=== PATIENT | female | born 1940 | race Caucasian/White ===

== ENCOUNTER 2021-04-23 10:34 | Emergency (ER) | payer MEDICARE, SELFPAY ==
[2021-04-23] VITALS (8 sets, daily range): BP systolic 123–134; BP diastolic 62–85; PULSE 66–78; RESP 18–28; TEMP 36.7–36.9; O2SAT 96–98
--- NOTE | ~2021-04-23 | CT_ITS ---
EXAMINATION: CTA chest PE protocol DATE: 04/23/2021 16:08 INDICATION: Chest pain. TECHNIQUE: Computed tomography angiography (CTA) of the chest was performed with 100 mL Omnipaque-350 intravenous contrast timed to evaluate the pulmonary arteries. Coronal maximum intensity projection 3D-reconstructions were created by the technologist. Automated exposure control and iterative reconst ruction technique were employed. The dose-length product was 380.19 mGy-cm. COMPARISON: CT abdomen 02/14/2017 FINDINGS: The lungs demonstrate mild atelectasis. Again seen are 5 mm and 3 mm nodules in right lower lobe, likely benign. There is a 3 mm nodule in left upper lobe, likely benign. No pleural effusion. There is a chronic 3.1 cm nodule in left thyroid lobe, likely benign. The heart size is normal. No pe ricardial effusion. There is no pulmonary embolus. There is a moderate-sized sliding hiatal hernia. C alcifications in the spleen are consistent with old granulomatous disease. There is severe cervical, thoracic, and lumbar spondylosis. IMPRESSION: 1. No pulmonary embolus. 2. Moderate-sized sliding hiatal hernia. Reviewed, dictated and finalized at location A.
--- NOTE | ~2021-04-23 | XR_ITS ---
XR chest 2V DATE: 04/23/2021 11:32 INDICATION: Chest tightness, dizziness, shortness of breath. History of asthma and smoking. TECHNIQUE: PA and lateral views COMPARISON: 04/22/2019 PA and lateral chest FINDINGS: Heart size is within normal range. No hilar or mediastinal enlargement. Mild bilateral hyperinflation of the lungs. No pulmonary infiltrate or consolidation, pleural effusio n or pulmonary vascular congestion or pneumothorax is detected. Diffuse osteopenia. Resection of the lateral aspect of the left clavicle. Status post cholecystectomy. IMPRESSION: No active cardiopulmonary disease or significant change since 04/22/2019 Reviewed, dictated and finalized at location A. IMPRESSION: No active cardiopulmonary disease or significant change since 019
--- NOTE | 2021-04-23 11:03 | ECG_ITS ---
Measurements Intervals [place] Rate: 69 P: 28 [place]: 157 QRS: 246 QRSD: 85 T: 34 QT: 393 QTc: 422 Interpretive Statements SINUS RHYTHM POOR R WAVE PROGRESSION, ANTERIOR LEADS CONSIDER INFERIOR INFARCT, AGE INDETERMINATE BASELINE ARTIFACT- V3, V5-V6 ABNORMAL ECG Electronically Signed On 04-25-2021 9:12:07 CDT by Edil Oakes D.O.
[2021-04-23 11:30] LABS: Basophils Absolute Auto 0.2 K/mm3 (0.0-0.1); Basophils Percent Auto 1.5 % (0.2-1.2); Eosinophils Absolute Auto 0.2 K/mm3 (0-0.3); Eosinophils Percent Auto 1.9 % (0-4.4); Hematocrit 43.5 % (37.0-47.0); Hemoglobin 13.6 g/dL (12.0-15.0); Immature Granulocyte Absolute 0.05 K/mm3 (0.00-0.031); Immature Granulocyte Percent A 0.5 % (0-0.5); Lymphocytes Absolute Auto 1.74 K/mm3 (0.9-3.2); Lymphocytes Percent Auto 17.5 % (18.3-44.2); Mean Corpuscular HGB Conc 31.3 g/dl (32-36); Mean Corpuscular Hemoglobin 28.5 pg (26-34); Mean Corpuscular Volume 91.2 fl (80-100); Mean Platelet Volume 10.2 fl (7.4-10.4); Monocytes Absolute Auto 0.8 K/mm3 (0.1-0.6); Monocytes Percent Auto 7.8 % (2.6-8.5); Neutrophils Percent Auto 70.8 % (45.5-73.1); Platelet Count Result 363 k/mm3 (150-375); Red Blood Count 4.77 M/mm3 (4.2-5.4); Red Cell Distribution Width 13.1 % (11.5-14.5); White Blood Count 9.9 K/mm3 (4.5-10.0)
[2021-04-23 11:41] LABS: Anion Gap 7 mmol/L (8-16); Blood Urea Nitrogen 18 mg/dL (7-17); Calcium 9.7 mg/dL (8.4-10.2); Carbon Dioxide 28 mmol/L (22-30); Chloride 97 mmol/L (98-107); Estimated CRCL calculation 49 ml/min; Estimated Glomerular Filt Rate > 60; Glucose 111 mg/dL (65-110); Potassium 3.9 mmol/L (3.4-5.0); Sodium 132 mmol/L (137-145)
[2021-04-23 11:45] LABS: INR 0.8; Prothrombin Time 11.3 Seconds (11.1-14.7)
[2021-04-23 11:56] LABS: Troponin I < 0.012 ng/mL (0.000-0.034)
--- NOTE | 2021-04-23 13:26 | ED.SOB ---
HPI - SOB/Dyspnea General Chief Complaint: Shortness of Breath/Dyspnea Stated Complaint: Sent by Dr Rodriguez Time Seen by Provider: 04/23/21 11:47 History of Present Illness HPI Narrative: Patient is an 80-year-old female who presents ER with shortness of breath. This morning around 7 AM patient became suddenly short of breath could not breathe an hour for several seconds. She used her rescue inhaler which improved her symptoms. Denies fevers chills sweats. Has had some tightness similar to her previous asthma issues. No lower extremity swelling or cramping. No long distance travel. Called her PCP who recommended she come to the ER because there is nothing he could do for her. Related Data Home Medications Medication Instructions Recorded Confirmed aspirin 81 mg tablet,delayed 81 mg PO DAILY 09/21/19 02/09/20 release calcium carbonate 600 mg (1,500 1 tablet PO BID 09/21/19 02/09/20 mg)-vitamin D3 200 unit tablet latanoprost 0.005 % eye drops 1 drop EACH EYE QPM 09/21/19 02/09/20 mometasone 50 mcg/actuation nasal 2 spray NASAL DAILY 09/21/19 02/09/20 spray Allergies Allergy/AdvReac Type Severity Reaction Status Date / Time MARK Inhibitors Allergy Unknown Cough Verified 04/23/21 11:54 adhesive Allergy Unknown Rash Verified 04/23/21 11:54 atorvastatin Allergy Unknown Muscle Pain Verified 04/23/21 11:54 latex Allergy Unknown Rash Verified 04/23/21 11:54 Penicillins Allergy Unknown Rash Verified 04/23/21 11:54 Wtlzygw-Ayl-Rjm Reductase Allergy Unknown Muscle Pain Verified 04/23/21 11:54 Inhibitor Review of Systems Review of Systems: All systems reviewed & are unremarkable except as noted in HPI and below Constitutional: Constitutional: Denies chills, Denies fever(s) and Denies weakness ENT: Denies nasal congestion and Denies sore throat Cardiovascular: Cardiovascular: Reports chest pain, Denies rapid heart rate and Denies radiating jaw, neck or arm pain Respiratory: Respiratory: Denies chest congestion, Denies cough, Reports dyspnea and Denies wheezing Gastrointestinal: Gastrointestinal: Denies abdominal pain, Denies nausea and Denies vomiting Musculoskeletal: Musculoskeletal: Denies arthralgias and Denies muscle cramps [facility] Past Medical History Medical History (Updated 04/23/21 @ 16:40 by Robin Simon MD) Asthma with exacerbation COPD with asthma Esophageal reflux Essential (primary) hypertension Mixed hyperlipidemia SVT (supraventricular tachycardia) Family History Family History Mother Family history of chronic obstructive pulmonary disease, Onset Age: 83 Sibling Family history of heart disease in male family member before age 55 Acute myocardial infarction Father Acute myocardial infarction Family history of coronary artery disease, Onset Age: 51 Grandparent Family history of cardiovascular disease, Onset Age: 89 Cerebrovascular accident Other Family history of allergic disorder Hypertension Social History Social History Smoking status: Former smoker Second hand tobacco smoke exposure: No Alcohol intake: current Gender identity (if verbalized by the patient): Female Exam Narrative: GENERAL: Well-appearing, well-nourished, and in no acute distress. HEAD: Normocephalic, atraumatic. EYES: PERRL and EOMI. CHEST: Clear to auscultation. No respiratory distress. HEART: Regular rate and rhythm. Normal peripheral pulses. ABDOMEN: Soft, nontender, nondistended. EXTREMITIES: Normal range of motion. No edema. SKIN: Warm, dry, no rash. NEURO: Alert and oriented x3. PSYCH: Normal mood and affect. Course Course Emergency Course: No PE. Feels better with nebulizer treatment. Discharge with steroids. Vital Signs Vital signs: Vital Signs Temperature 98.1 F 04/23/21 11:03 Pulse Rate 72 04/23/21 11:03 Res
[2021-04-23] MEDS: ALBUTEROL SULFATE NEB 2.5 MG/0.5 ML INH 5 MG INHALATION (13:57)
[2021-04-23] MEDS: IPRATROPIUM BR 0.02% INH SOLN 0.5 MG/2.5 ML VIAL INHALATION (13:58)
[2021-04-23 15:03] LABS: Troponin I < 0.012 ng/mL (0.000-0.034)
[2021-04-23 15:05] LABS: D Dimer 0.55 ug/mL (<0.48)
== END 2021-04-23 17:10 | disposition home or self-care (01) ==
PROVIDERS: Emergency Provider Emergency Medicine; PCP Internal Medicine
DX: J44.1 Chronic obstructive pulmonary disease with (acute) exacerbation (principal); K21.9 Gastro-esophageal reflux disease without esophagitis; E78.2 Mixed hyperlipidemia; I10 Essential (primary) hypertension; Z79.82 Long term (current) use of aspirin; Z87.891 Personal history of nicotine dependence; K44.9 Diaphragmatic hernia without obstruction or gangrene; R94.31 Abnormal electrocardiogram [ECG] [EKG]
CPT/HCPCS: 36415; 71046; 71275; 80048; 84484; 85025; 85380; 85610; 85730; 93005; 94640; 99284; Q9967

== ENCOUNTER 2021-05-10 10:08 | Outpatient (CLI) | payer MEDICARE, SELFPAY ==
--- NOTE | ~2021-05-10 | MM_ITS ---
EXAMINATION: MM screening [facility] BI w mariia HISTORY: Screening mammogram TECHNIQUE: Craniocaudal and mediolateral oblique 3-D tomosynthesis images were obtained and synthetic 2-D images were generated. CAD analysis was submitted and interpreted. COMPARISON: 12/22/2018, 12/09/2018, 10/03/2017, 02/14/2017 BREAST PARENCHYMAL COMPOSITION: There are scattered areas of fibroglandular density. FINDINGS: RIGHT BREAST: Small stable masses are present in the outer right breast. There appears to be a new 3 mm mass in the middle third of the lower inner breast 6 cm from the nipple best appreciated on cranio caudal tomosynthesis image /70. LEFT BREAST: There is no evidence of suspicious mass, calcification, or architectural distortion to s uggest malignancy. There has been no significant interval change. IMPRESSION: 1. Possible new right breast mass. 2. Additional mammographic views and possible breast ultrasound are recommended. BI-RADS Category 0: Incomplete: Needs additional imaging evaluation. Reviewed, dictated and finalized at location A. IMPRESSION: 1. Possible new right breast mass. 2. Additional mammographic views and possible breast ultrasound are recommended . BI-RADS Category 0: Incomplete: Needs additional imaging evaluation.
== END 2021-05-10 10:09 | disposition home or self-care (01) ==
LOC: ANHIMG 10:15
PROVIDERS: PCP Internal Medicine; Visit Provider Internal Medicine
DX: Z12.31 Encounter for screening mammogram for malignant neoplasm of breast (principal); R92.8 Other abnormal and inconclusive findings on diagnostic imaging of breast
CPT/HCPCS: 77063; 77067

== ENCOUNTER 2021-06-05 11:00 | Outpatient (CLI) | payer MEDICARE, SELFPAY ==
--- NOTE | ~2021-06-05 | MMUS_ITS ---
EXAMINATION: MM diagnostic reece RT w mariia, US breast RT limited HISTORY: Possible right breast mass TECHNIQUE: Additional 3-D tomosynthesis images of the right breast were performed and synthetic 2-D i mages were generated. CAD analysis was submitted and interpreted. High resolution limited right breas t ultrasound was performed. COMPARISON: 05/10/2021, 12/22/2018, 12/09/2018, 10/13/2017, 02/14/2017 BREAST PARENCHYMAL COMPOSITION: There are scattered areas of fibroglandular density. FINDINGS: MAMMOGRAPHIC FINDINGS: There is a 4 mm oval, obscured, equal density mass in the posterior third outer breast at the 9:00 lo cation 6 cm from the nipple. ULTRASOUND: There is a 4 mm x 3 mm oval, circumscribed, parallel, hypoechoic mass at the 9:00 location 5 cm from the nipple with no posterior features or internal vascularity. IMPRESSION: 1. Probably benign right breast mass. 2. Recommend 6 month follow-up right diagnostic mammogram and ultrasound. BI-RADS category 3, probably benign findings. Reviewed, dictated and finalized at location A. IMPRESSION: 1. Probably benign right breast mass. 2. Recommend 6 month follow-up right diagnostic mammogram and ultrasound. BI-RADS category 3, probably benign findings.
== END 2021-06-05 11:01 | disposition home or self-care (01) ==
LOC: ANHIMG 11:02
PROVIDERS: PCP Internal Medicine; Visit Provider Internal Medicine
DX: R92.8 Other abnormal and inconclusive findings on diagnostic imaging of breast (principal)
CPT/HCPCS: 76642; 77061; 77065; G0279

== ENCOUNTER 2021-07-31 14:50 | Emergency (ER) | payer MEDICARE, SELFPAY ==
[2021-07-31] VITALS (17 sets, daily range): BP systolic 116–141; BP diastolic 58–68; PULSE 65–84; RESP 13–26; TEMP 36.2–36.6; O2SAT 96–98
--- NOTE | ~2021-07-31 | XR_ITS ---
EXAMINATION: XR chest 2V DATE: 07/31/2021 15:22 INDICATION: Shortness of breath. TECHNIQUE: Frontal and lateral views of the chest were obtained. COMPARISON: Chest 2 views 04/23/2021, chest CT 04/23/2021 FINDINGS: There is mild atelectasis in the lower lung zones. No pleural effusion or pneumothorax. The heart size is normal. There are prominent paracardial fat pads. Surgical clips in the right upper qu adrant are likely from cholecystectomy. IMPRESSION: 1. Mild atelectasis in the lower lung zones. Reviewed, dictated and finalized at location A. [employer]
--- NOTE | 2021-07-31 14:57 | ECG_ITS ---
Measurements Intervals [place] Rate: 68 P: 54 [place]: 138 QRS: 256 QRSD: 85 T: 40 QT: 399 QTc: 427 Interpretive Statements SINUS RHYTHM INCOMPLETE RIGHT BUNDLE BRANCH BLOCK DELAYED PRECORDIAL R/S TRANSITION BORDERLINE T WAVE ABNORMALITY- ANTERIOR LEADS BASELINE ARTIFACT- I, II, III, AVR, AVL, AVF, V4-V6 BORDERLINE ECG Electronically Signed On 07-31-2021 15:17:45 [employer] by Edil Oakes D.O.
[2021-07-31 15:53] LABS: Basophils Absolute Auto 0.1 K/mm3 (0.0-0.1); Basophils Percent Auto 1.6 % (0.2-1.2); Eosinophils Absolute Auto 0.3 K/mm3 (0-0.3); Eosinophils Percent Auto 3.4 % (0-4.4); Hematocrit 41.3 % (37.0-47.0); Hemoglobin 13.2 g/dL (12.0-15.0); Immature Granulocyte Absolute 0.02 K/mm3 (0.00-0.031); Immature Granulocyte Percent A 0.2 % (0-0.5); Lymphocytes Absolute Auto 1.79 K/mm3 (0.9-3.2); Lymphocytes Percent Auto 21.7 % (18.3-44.2); Mean Corpuscular Hemoglobin 29.1 pg (26-34); Mean Platelet Volume 10.2 fl (7.4-10.4); Monocytes Absolute Auto 0.7 K/mm3 (0.1-0.6); Monocytes Percent Auto 8.8 % (2.6-8.5); Neutrophils Absolute Auto 5.3 K/mm3 (1.3-6.7); Neutrophils Percent Auto 64.3 % (45.5-73.1); Platelet Count Result 391 k/mm3 (150-375); Red Blood Count 4.54 M/mm3 (4.2-5.4); White Blood Count 8.3 K/mm3 (4.5-10.0)
[2021-07-31 16:11] LABS: INR 0.9; Prothrombin Time 11.9 Seconds (11.1-14.7)
[2021-07-31 16:12] LABS: Partial Thromboplastin Time 25.9 SECONDS (22.3-36.8)
[2021-07-31 16:20] LABS: Anion Gap 9 mmol/L (8-16); Blood Urea Nitrogen 23 mg/dL (7-17); Calcium 9.7 mg/dL (8.4-10.2); Carbon Dioxide 27 mmol/L (22-30); Chloride 98 mmol/L (98-107); Estimated Glomerular Filt Rate > 60; Glucose 112 mg/dL (65-110); Potassium 3.6 mmol/L (3.4-5.0); Sodium 134 mmol/L (137-145)
[2021-07-31 16:29] LABS: Troponin I < 0.012 ng/mL (0.000-0.034)
--- NOTE | 2021-07-31 18:00 | PC.NURSE ---
pt ambulatory around nurses station with pulse ox dropping to 91%. pts pulse ox increased quickly.
--- NOTE | 2021-07-31 19:01 | ED.SOB ---
HPI - SOB/Dyspnea General Chief Complaint: Shortness of Breath/Dyspnea Stated Complaint: sob Time Seen by Provider: 07/31/21 18:15 Source: patient Mode of arrival: ambulatory Limitations: no limitations History of Present Illness HPI Narrative: 80-year-old female Has a history of asthma and/or COPD She reports that she has been feeling little bit more short of breath for about 6 months and felt as though her Advair was no longer working for her Continue to use an albuterol rescue inhaler She saw her primary several days ago and was switched to trilogy Again today she had to use albuterol nebulizer twice and the second time she felt like it was less beneficial She also had complained of a couple episodes of brief, sharp, precordial pains today which worried her She does not have a fever or cough, no nausea or diaphoresis, no exacerbation of her symptoms with activity movement or change in position Related Data Home Medications Medication Instructions Recorded Confirmed aspirin 81 mg tablet,delayed 81 mg PO DAILY 09/21/19 05/28/21 release calcium carbonate 600 mg (1,500 1 tablet PO BID 09/21/19 05/28/21 mg)-vitamin D3 200 unit tablet latanoprost 0.005 % eye drops 1 drop EACH EYE QPM 09/21/19 05/28/21 mometasone 50 mcg/actuation nasal 2 spray NASAL DAILY 09/21/19 05/28/21 spray Allergies Allergy/AdvReac Type Severity Reaction Status Date / Time MARK Inhibitors Allergy Unknown Cough Verified 07/31/21 18:37 adhesive Allergy Unknown Rash Verified 07/31/21 18:37 atorvastatin Allergy Unknown Muscle Pain Verified 07/31/21 18:37 latex Allergy Unknown Rash Verified 07/31/21 18:37 Penicillins Allergy Unknown Rash Verified 07/31/21 18:37 Dldivfh-OEN-LbU Reductase Allergy Unknown Muscle Pain Verified 07/31/21 18:37 Inhibitor [Lzukqbs-Uok-Sri Reductase Inhibitor] Review of Systems Review of Systems: All systems reviewed & are unremarkable except as noted in HPI and below Constitutional: Constitutional: Reports no additional constitutional complaints, Denies chills, Denies fever(s) and Denies headache(s) Eyes: Eyes: Reports no additional eye complaints and Denies change in vision ENT: Denies headache(s) and Denies sore throat Cardiovascular: Cardiovascular: Reports chest pain and Denies dyspnea Respiratory: Respiratory: Reports cough and Reports dyspnea Gastrointestinal: Gastrointestinal: Denies abdominal pain, Denies diarrhea and Denies vomiting Genitourinary: Genitourinary: Denies urinary frequency and Denies dysuria Musculoskeletal: Musculoskeletal: Denies deformity, Denies arthralgias, Denies joint swelling and Denies numbness Integumentary/Breasts: Skin/Breast: Denies rash and Denies wounds Neurologic: Denies headache(s), Denies focal weakness and Denies numbness Psychiatric: Psychiatric: Reports no additional psychiatric complaints Endocrine: Endocrine: Reports no additional endocrine complaints Hematologic/Lymphatic: Hematologic/Lymphatic: Reports no additional hematologic/lymphatic complaints Allergic/Immunologic: Allergic/Immunologic: Reports no additional allergic/immunologic complaints [facility] Past Medical History Medical History Asthma with exacerbation COPD with asthma Esophageal reflux Essential (primary) hypertension Mixed hyperlipidemia SVT (supraventricular tachycardia) Family History Family History Mother Family history of chronic obstructive pulmonary disease, Onset Age: 83 Sibling Family history of heart disease in male family member before age 55 Acute myocardial infarction Father Acute myocardial infarction Family history of coronary artery disease, Onset Age: 51 Grandparent Family history of cardiovascular disease, Onset Age: 89 Cerebrovascular accident Other Family history of allergic disorder Hypertension
[2021-07-31 19:03] LABS: Troponin I < 0.012 ng/mL (0.000-0.034)
--- NOTE | 2021-07-31 21:04 | PC.NURSE ---
ERP notifid that BNP was not added on to labs done at 1830 as it was ordered. RN was holding meds for BNP results. When RN noted that BNP had still not resulted RN notified Lab to add on and ERP of the issue. ERP stated to D/C Bumex and the PO potassium at this time. did not need to wait for BNP results for D/C
[2021-07-31 21:14] LABS: NT Pro B Type Natriuretic Pept 89 pg/mL (5-100)
== END 2021-07-31 21:28 | disposition home or self-care (01) ==
PROVIDERS: Emergency Medicine; Emergency Provider Emergency Medicine; PCP Internal Medicine
DX: J44.9 Chronic obstructive pulmonary disease, unspecified (principal); R07.9 Chest pain, unspecified; R60.9 Edema, unspecified; K21.9 Gastro-esophageal reflux disease without esophagitis; I10 Essential (primary) hypertension; E78.2 Mixed hyperlipidemia; I45.10 Unspecified right bundle-branch block; R94.31 Abnormal electrocardiogram [ECG] [EKG]
CPT/HCPCS: 36415; 71046; 80048; 83880; 84484; 85025; 85610; 85730; 93005; 99284

== ENCOUNTER 2021-08-10 12:34 | Outpatient (CLI) | payer MEDICARE, SELFPAY ==
--- NOTE | 2021-08-10 14:41 | P.PCNPFT_ITS ---
PFT Procedure Performed PFT Procedure Performed Spirometry with Pre/Post Bronchodilator Plethysmography (Lung Vol) Diffusing Cap (DLCO) Flow Vol Loop PFT Interpretation This is a pulmonary function test with pre and post-bronchodilator spirometry, plethysmography and diffusing capacity. The test was performed and results interpreted in accordance with the 2019 and 2005 ATS/ERS Task Force guidelines respectively using the Global Lung Function Initiative-2012 reference equations. Patient demonstrated good effort and cooperation. Reproducibility criteria were met. The quality of the pre bronchodilator spirometry maneuver was Grade A and post bronchodilator spirometry maneuver was Grade A. Findings: Spirometry: there is decreased maximal expiratory airflow at all lung volumes with concave expiratory flow tracing. The contour the inspiratory flow tracing is normal. The pre bronchodilator FVC is 1.93 L, 88% predicted. The pre bronchodilator FEV1 is 0.91 L, 55% predicted. The FEV1: FVC ratio is 47%. The post bronchodilator FVC is 2.12 L, representing a 10% increase. The post bronchodilator FEV1 is 0.16 L, representing 150 mL increase which corresponds to a 16% increase. The post bronchodilator FEV1: FVC ratio is 50% Plethysmography: the total lung capacity is 3.82 L, 86% predicted. Functional residual capacity is 2.19 L, 86% predicted. The residual volume is 1.84 L, 84% predicted. Diffusion capacity: The absolute diffusion capacity is 10.9, 61% predicted. The diffusing capacity corrected for alveolar volume is 3.33, 77% predicted. Impression: There is a moderately severe obstructive abnormality without significant improvement after inhaling a single dose of albuterol as the abso lute increase in the post bronchodilator FEV1 is less than 200 mL. the lung volumes are normal. The absolute diffusing capacity is mildly decreased and normalizes when corrected for alveolar volume. There are no prior studies for comparison
== END 2021-08-10 12:35 | disposition home or self-care (01) ==
LOC: ANHPFT 12:39
PROVIDERS: PCP Internal Medicine; Visit Provider Family Medicine
DX: J45.901 Unspecified asthma with (acute) exacerbation (principal); R94.2 Abnormal results of pulmonary function studies
CPT/HCPCS: 94060; 94726; 94729

== ENCOUNTER → 2022-04-18 10:31 | Outpatient (REF) | payer MEDICARE, SELFPAY | LOC: ANHLAB 10:31 | PROVIDERS: PCP Internal Medicine; Visit Provider Nurse Practitioner | DX: C44.01 Basal cell carcinoma of skin of lip (principal); C44.319 Basal cell carcinoma of skin of other parts of face | CPT/HCPCS: 88305 ==

== ENCOUNTER 2022-07-01 07:00 | Outpatient (NON) | payer MEDICARE, SELFPAY | END 2022-07-01 07:01 | disposition home or self-care (01) | PROVIDERS: PCP Family Medicine; Visit Provider Surgery Plastic and Reconstructive Surgery | DX: C44.319 Basal cell carcinoma of skin of other parts of face (principal); C44.01 Basal cell carcinoma of skin of lip | CPT/HCPCS: 88305; 88331 ==

== ENCOUNTER 2022-07-08 07:00 | Outpatient (NON) | payer MEDICARE, SELFPAY | END 2022-07-08 07:01 | disposition home or self-care (01) | PROVIDERS: PCP Family Medicine; Visit Provider Surgery Plastic and Reconstructive Surgery | DX: C44.01 Basal cell carcinoma of skin of lip (principal) | CPT/HCPCS: 88305; 88331 ==

== ENCOUNTER 2022-09-17 07:00 | Outpatient (NON) | payer MEDICARE, SELFPAY | END 2022-09-17 07:01 | disposition home or self-care (01) | PROVIDERS: PCP Family Medicine; Visit Provider Nurse Practitioner | DX: C44.519 Basal cell carcinoma of skin of other part of trunk (principal) | CPT/HCPCS: 88305 ==

== ENCOUNTER 2022-10-10 15:51 | Outpatient (NON) | payer MEDICARE, SELFPAY | END 2022-10-10 15:52 | disposition home or self-care (01) | LOC: ANHLAB 15:55 | PROVIDERS: PCP Family Medicine; Visit Provider Nurse Practitioner | DX: D49.2 Neoplasm of unspecified behavior of bone, soft tissue, and skin (principal); L98.8 Other specified disorders of the skin and subcutaneous tissue | CPT/HCPCS: 88305 ==

== ENCOUNTER 2022-10-21 13:13 | Outpatient (NON) | payer MEDICARE, SELFPAY | END 2022-10-21 13:14 | disposition home or self-care (01) | LOC: ANHLAB 13:13 | PROVIDERS: PCP Family Medicine; Visit Provider Nurse Practitioner | DX: C44.519 Basal cell carcinoma of skin of other part of trunk (principal) | CPT/HCPCS: 88305; 88331 ==

== ENCOUNTER 2022-12-11 00:04 | Emergency (ER) | payer MEDICARE, SELFPAY ==
[2022-12-11] VITALS (23 sets, daily range): BP systolic 112–138; BP diastolic 53–82; PULSE 60–75; RESP 13–29; TEMP 36.7; O2SAT 94–99
--- NOTE | ~2022-12-11 | XR_ITS ---
Clinical Indication: Irregular heartbeat PA and lateral views of the chest: Comparison: 07/31/2021 Findings: The lungs are clear, without evidence of focal consolidation or pleural effusion. Cardiome diastinal silhouette is within normal limits. Bones and soft tissues are unremarkable. Impression: Normal chest. Reviewed, dictated and finalized at location . Impression: Normal chest.
--- NOTE | 2022-12-11 00:11 | ECG_ITS ---
Measurements Intervals [place] Rate: 65 P: 62 [place]: 160 QRS: -81 QRSD: 89 T: 35 QT: 406 QTc: 425 Interpretive Statements SINUS RHYTHM LEFT AXIS DEVIATION DELAYED PRECORDIAL R/S TRANSITION BASELINE ARTIFACT- I, II, III, AVR, AVL, AVF, V1 BORDERLINE ECG COMPARED TO ECG 07/31/2021 15:01:37 NO SIGNIFICANT CHANGES Electronically Signed On 12-11-2022 6:40:06 CDT by Edil Oakes D.O.
[2022-12-11 00:25] LABS: Basophils Absolute Auto 0.1 K/mm3 (0.0-0.1); Eosinophils Absolute Auto 0.1 K/mm3 (0-0.3); Eosinophils Percent Auto 1.3 % (0-4.4); Hematocrit 35.6 % (37.0-47.0); Hemoglobin 11.5 g/dL (12.0-15.0); Immature Granulocyte Absolute 0.02 K/mm3 (0.00-0.031); Immature Granulocyte Percent A 0.2 % (0-0.5); Lymphocytes Absolute Auto 1.87 K/mm3 (0.9-3.2); Lymphocytes Percent Auto 20.3 % (18.3-44.2); Mean Corpuscular HGB Conc 32.3 g/dl (32-36); Mean Corpuscular Hemoglobin 28.7 pg (26-34); Mean Corpuscular Volume 88.8 fl (80-100); Mean Platelet Volume 9.8 fl (7.4-10.4); Monocytes Absolute Auto 0.8 K/mm3 (0.1-0.6); Monocytes Percent Auto 8.6 % (2.6-8.5); Neutrophils Absolute Auto 6.3 K/mm3 (1.3-6.7); Neutrophils Percent Auto 68.6 % (45.5-73.1); Platelet Count Result 347 k/mm3 (150-375); Red Blood Count 4.01 M/mm3 (4.2-5.4); White Blood Count 9.2 K/mm3 (4.5-10.0)
[2022-12-11 00:35] LABS: Prothrombin Time 12.9 Seconds (11.1-14.7)
[2022-12-11 00:36] LABS: Alanine Aminotransferase 18 U/L (6-35); Albumin Level 3.8 g/dL (3.5-5.1); Alkaline Phosphatase 113 U/L (38-126); Anion Gap 4 mmol/L (8-16); Aspartate Amino Transferase 19 U/L (14-36); Bilirubin,Total 0.6 mg/dL (0.2-1.3); Blood Urea Nitrogen 17 mg/dL (7-17); Calcium 8.3 mg/dL (8.4-10.2); Carbon Dioxide 25 mmol/L (22-30); Chloride 108 mmol/L (98-107); Estimated CRCL calculation 54 ml/min; Estimated Glomerular Filt Rate > 60; Glucose 94 mg/dL (65-110); Lipase 38 U/L (23-300); Partial Thromboplastin Time 26.7 SECONDS (22.3-36.8); Potassium 3.1 mmol/L (3.4-5.0); Sodium 137 mmol/L (137-145)
[2022-12-11 00:47] LABS: Troponin I < 0.012 ng/mL (0.000-0.034)
[2022-12-11] MEDS: SODIUM CHLORIDE 0.9% IV 1,000 ML 999 ML IV CONT (01:29)
[2022-12-11 01:35] LABS: Magnesium 1.9 mg/dL (1.6-2.3)
[2022-12-11] MEDS: POTASSIUM CHLORIDE 20 MEQ PACKET (FOR LIQUID) 40 MEQ PO (02:36)
[2022-12-11] MEDS: MAGNESIUM SULF 1 GM/D5W 100 ML 1 GM/100 ML BAG IVPB (02:36)
--- NOTE | 2022-12-11 02:42 | ED.GENADULT ---
HPI - General Adult General Chief complaint: Dizziness Stated complaint: dizzy Time Seen by Provider: 12/11/22 01:02 History of Present Illness HPI narrative: Patient is a 81-year-old female who presents the emergency department with chief complaint of palpitations and dizziness. The patient reports that she has history of PVCs and reports that she takes Cardizem patient reports that tonight she started noticing that she was having more frequent of the the irregular beats and reports that she felt, lightheaded with this. Patient reports no syncope denies chest pain reports that she has had this happen before and has seen her primary care provider. The patient reports she has seen cardiology and had a Holter monitor a few years ago. Related Data Home Medications Medication Instructions Recorded Confirmed aspirin 81 mg tablet,delayed 81 mg PO DAILY 09/21/19 08/12/22 release (Adult Aspirin Regimen) latanoprost 0.005 % eye drops 1 drop ophthalmic (eye) QPM 09/21/19 08/12/22 Allergies Allergy/AdvReac Type Severity Reaction Status Date / Time MARK Inhibitors Allergy Unknown Cough Verified 08/12/22 10:08 adhesive Allergy Unknown Rash Verified 08/12/22 10:08 atorvastatin Allergy Unknown Muscle Pain Verified 08/12/22 10:08 latex Allergy Unknown Rash Verified 08/12/22 10:08 Penicillins Allergy Unknown Rash Verified 08/12/22 10:08 Bakqrsu-BCC-XnJ Reductase Allergy Unknown Muscle Pain Verified 08/12/22 10:08 Inhibitor [Hdumnrb-Hrb-Ija Reductase Inhibitor] Review of Systems Review of Systems: A 10 system review of systems was completed on the patient and is negative except for what is stated in the HPI. Nursing and ancillary documentation was reviewed. [facility] Past Medical History Medical History Asthma with exacerbation COPD with asthma Esophageal reflux Essential (primary) hypertension Mixed hyperlipidemia SVT (supraventricular tachycardia) Family History Family History Mother Family history of chronic obstructive pulmonary disease, Onset Age: 83 Sibling Family history of heart disease in male family member before age 55 Acute myocardial infarction Father Acute myocardial infarction Family history of coronary artery disease, Onset Age: 51 Grandparent Family history of cardiovascular disease, Onset Age: 89 Cerebrovascular accident Other Family history of allergic disorder Hypertension Social History Social History Social History: Patient states she has never smoke (03/11/22). Smoking status: Never smoker Second hand tobacco smoke exposure: No Alcohol intake: current Gender identity (if verbalized by the patient): Female Exam Narrative: GENERAL: Well-appearing, well-nourished, and in no acute distress. HEAD: Normocephalic, atraumatic. EYES: PERRLA and EOMI. ENT: Nares clear, no rhinorrhea or epistaxis. Mucous membranes moist. NECK: Supple. CHEST: Clear to auscultation. No respiratory distress. HEART: Regular rate and rhythm. No murmur heard. Normal peripheral pulses. ABDOMEN: Soft, nontender, nondistended, normal active bowel sounds. EXTREMITIES: Normal range of motion. No edema. SKIN: Warm, dry, no rash. NEURO: No focal deficits. Alert and oriented x3. PSYCH: Normal mood and affect. Course Vital Signs Vital signs: Vital Signs Temperature 36.7 C 12/11/22 00:03 Pulse Rate 75 12/11/22 00:03 Respiratory Rate 15 12/11/22 00:03 Blood Pressure 130/65 12/11/22 00:03 Pulse Oximetry 99 12/11/22 00:03 Oxygen Delivery Room Air 12/11/22 00:03 Temperature 36.7 C 12/11/22 00:03 Pulse Rate 63 12/11/22 01:46 Respiratory Rate 17 12/11/22 01:46 Blood Pressure 123/53 L 12/11/22 01:46 Pulse Oximetry 94 12/11/22 01:46 Oxygen Del
[2022-12-11 03:57] LABS: Troponin I < 0.012 ng/mL (0.000-0.034)
== END 2022-12-11 04:18 | disposition home or self-care (01) ==
PROVIDERS: Emergency Provider Emergency Medicine; PCP Family Medicine
DX: R00.2 Palpitations (principal); E87.6 Hypokalemia; I49.3 Ventricular premature depolarization; E78.2 Mixed hyperlipidemia; I10 Essential (primary) hypertension; J44.9 Chronic obstructive pulmonary disease, unspecified; Z79.899 Other long term (current) drug therapy
CPT/HCPCS: 36415; 71046; 80053; 83690; 83735; 84484; 85025; 85610; 85730; 93005; 96361; 96365; 99284; A9270; J3475; J7030

== ENCOUNTER 2022-12-18 11:26 | Outpatient (CLI) | payer MEDICARE, SELFPAY ==
[2022-12-18 18:42] LABS: Anion Gap 6 mmol/L (8-16); Blood Urea Nitrogen 22 mg/dL (7-17); Calcium 9.4 mg/dL (8.4-10.2); Carbon Dioxide 28 mmol/L (22-30); Chloride 102 mmol/L (98-107); Estimated Glomerular Filt Rate > 60; Glucose 98 mg/dL (65-110); Potassium 3.9 mmol/L (3.4-5.0); Sodium 136 mmol/L (137-145)
== END 2022-12-18 11:27 | disposition home or self-care (01) ==
LOC: ANHGOSHLAB 11:27
PROVIDERS: PCP Family Medicine; Visit Provider Nurse Practitioner
DX: E87.6 Hypokalemia (principal)
CPT/HCPCS: 36415; 80048

== ENCOUNTER 2023-04-02 09:12 | Outpatient (CLI) | payer MEDICARE, SELFPAY ==
[2023-04-02 16:26] LABS: Alanine Aminotransferase 22 U/L (6-35); Albumin Level 4.1 g/dL (3.5-5.1); Alkaline Phosphatase 110 U/L (38-126); Anion Gap 5 mmol/L (8-16); Aspartate Amino Transferase 45 U/L (14-36); Bilirubin,Total 0.6 mg/dL (0.2-1.3); Blood Urea Nitrogen 18 mg/dL (7-17); Calcium 9.2 mg/dL (8.4-10.2); Carbon Dioxide 30 mmol/L (22-30); Chloride 103 mmol/L (98-107); Cholesterol 244 mg/dL (0-200); Estimated Glomerular Filt Rate > 60; Glucose 102 mg/dL (65-110); HDL Direct 51 mg/dL; Magnesium 2.3 mg/dL (1.6-2.3); Sodium 138 mmol/L (137-145); Triglycerides 137 mg/dL (<150)
[2023-04-02 16:37] LABS: LDL Cholesterol Direct 141 mg/dL
[2023-04-02 18:07] LABS: Thyroid Stimulating Hormone Reflex 0.996 uIU/mL (0.465-4.68)
== END 2023-04-02 09:13 | disposition home or self-care (01) ==
LOC: ANHGOSHLAB 09:14
PROVIDERS: PCP Family Medicine; Visit Provider Family Medicine
DX: E61.2 Magnesium deficiency (principal); Z13.29 Encounter for screening for other suspected endocrine disorder; Z13.228 Encounter for screening for other metabolic disorders; Z13.220 Encounter for screening for lipoid disorders; N60.09 Solitary cyst of unspecified breast
CPT/HCPCS: 36415; 80053; 80061; 83735; 84443

== ENCOUNTER 2023-08-02 21:34 | Emergency (ER) | payer MEDICARE, SELFPAY ==
[2023-08-02 21:36] VITALS: BP 131/77; PULSE 81; RESP 20; TEMP 36.5; O2SAT 98
[2023-08-02] MEDS: HYDROcodone/acetaminophen (*CRX) 5-325 MG TABLET 1 TAB PO (22:21)
[2023-08-02] MEDS: LIDOCAINE HCL 2% JELLY 5 ML TUBE 1 APPLIC TOPICAL (22:52)
--- NOTE | 2023-08-02 23:40 | ED.WOUNDLAC ---
HPI - Wound/Laceration General Chief Complaint: Wound/Laceration Stated Complaint: Skin tear L arm Time Seen by Provider: 08/02/23 21:44 Source: patient Limitations: no limitations History of Present Illness HPI narrative: Patient is an 82-year-old female presents to the emergency department complaining of the left arm injury. Patient states that around 9:20 p.m. today she was going through the door of the home with the daughter and the lesion the dog tugged and brushed her arm up against the door frame causing a tearing of the skin. Patient admits to mild discomfort over the region of the wound. Patient denies any decreased range of motion of her left upper extremity at any joint. Patient was that her tetanus is up-to-date most recently was 6 years ago the patient not tried anything for the pain. Patient states that she was wearing a long sleeve shirt and has no concern for dirty wound contamination. Patient denies any numbness, weakness, any other injuries, denies use of blood thinners. Patient denies head injury. Patient denies being diabetic. Related Data Home Medications Medication Instructions Recorded Confirmed aspirin 81 mg tablet,delayed 81 mg PO DAILY 09/21/19 05/29/23 release (Adult Aspirin Regimen) latanoprost 0.005 % eye drops 1 drop ophthalmic (eye) QPM 09/21/19 05/29/23 Allergies Allergy/AdvReac Type Severity Reaction Status Date / Time MARK Inhibitors Allergy Unknown Cough Verified 05/29/23 11:31 adhesive Allergy Unknown Rash Verified 05/29/23 11:31 atorvastatin Allergy Unknown Muscle Pain Verified 05/29/23 11:31 latex Allergy Unknown Rash Verified 05/29/23 11:31 Penicillins Allergy Unknown Rash Verified 05/29/23 11:31 Maesfjq-GYY-FoJ Reductase Allergy Unknown Muscle Pain Verified 05/29/23 11:31 Inhibitor [Igvmeuw-Pdq-Hpg Reductase Inhibitor] Review of Systems Review of Systems: A 10 system review of systems was completed on the patient and is negative except for what is stated in the HPI. Nursing and ancillary documentation was reviewed. [facility] Past Medical History Medical History (Updated 08/02/23 @ 23:52 by Kurt Ojeda DO) Asthma with exacerbation Bronchitis COPD with asthma Esophageal reflux Essential (primary) hypertension Mixed hyperlipidemia SVT (supraventricular tachycardia) Family History Family History Mother Family history of chronic obstructive pulmonary disease, Onset Age: 83 Sibling Family history of heart disease in male family member before age 55 Acute myocardial infarction Father Acute myocardial infarction Family history of coronary artery disease, Onset Age: 51 Grandparent Family history of cardiovascular disease, Onset Age: 89 Cerebrovascular accident Other Family history of allergic disorder Hypertension Social History Social History Smoking status: Never smoker Second hand tobacco smoke exposure: No Alcohol intake: current Lack of Transportation: No Lack of Food: Never True Current Housing: I Have Housing Concerned About Future Housing: No Difficulty Paying Gas/Electric Bills: No Difficulty Paying for Meds: No Currently Unemployed: No Education: Bachelor's Degree Difficulty w/ Childcare or Family Care: No Gender identity (if verbalized by the patient): Female Comments At time of signature, I have reviewed and agree with nursing past medical, surgical, social and family history unless otherwise noted. Please see the nursing chart for further information. There is no relevant family history pertinent to the presenting complaint. Exam Narrative: CONST: No acute distress. Well nourished. HENMT: Head is normocephalic and atraumatic. EYES: No conjunctival icterus, injection, or pallor. PERRL. RESP: Able to speak in full sentences. Normal respiratory effo
[2023-08-03 00:34] VITALS: BP 138/61; PULSE 71; RESP 15; O2SAT 98
== END 2023-08-03 01:07 | disposition home or self-care (01) ==
PROVIDERS: Emergency Provider Student in an Organized Health Care Education/Training Program; PCP Family Medicine
DX: S51.812A Laceration without foreign body of left forearm, initial encounter (principal); Z79.82 Long term (current) use of aspirin; J44.9 Chronic obstructive pulmonary disease, unspecified; K21.9 Gastro-esophageal reflux disease without esophagitis; I10 Essential (primary) hypertension; E78.2 Mixed hyperlipidemia; W22.8XXA Striking against or struck by other objects, initial encounter
CPT/HCPCS: 99283; A9270

== ENCOUNTER 2023-12-09 10:38 | Outpatient (CLI) | payer MEDICARE, SELFPAY ==
--- NOTE | ~2023-12-09 | MMUS_ITS ---
EXAMINATION: MM diagnostic reece BI w mariia, US breast RT limited HISTORY: Probably benign right breast mass reported at 9:00 6 cm from the nipple on June 05 diagnostic right mammogram and limited right breast ultrasound TECHNIQUE: Bilateral full field ML, MLO and CC and right spot ML and CC 3-D tomosynthesis images were performed and synthetic 2-D images were generated. CAD analysis was submitted and interpreted. High resolution targeted right breast ultrasound at 9:00 5 cm from the nipple was performed. COMPARISON: 06/05/2021 diagnostic right mammogram and limited right breast ultrasound 05/10/2021 bilateral screening mammogram BREAST PARENCHYMAL COMPOSITION: There are scattered areas of fibroglandular density. FINDINGS: MAMMOGRAPHIC FINDINGS: Occasional small low-density circumscribed nodular densities measuring 4 mm or smaller are noted on t he right laterally. Scattered bilateral benign calcifications. No suspicious mass, architectural distortion, malignant microcalcifications, skin thickening or retra ction or significant new or developing density of either breast is detected. ULTRASOUND: Targeted ultrasound of right breast at 9:00 5 cm from the nipple reveals a circumscribed 2.6 x 2.4 mm hypoechoic lesion without internal vascularity or posterior shadowing, diminished in size from 3.2 x 4.3 mm dimension on 06/05/2021. IMPRESSION: 1. Benign findings 2. Routine annual mammographic screening is recommended BI-RADS Category 2: Benign finding(s). Reviewed, dictated and finalized at location A. IMPRESSION: 1. Benign findings 2. Routine annual mammographic screening is recommended BI-RADS Category 2: Benign finding(s).
== END 2023-12-09 10:39 | disposition home or self-care (01) ==
PROVIDERS: PCP Family Medicine; Visit Provider Family Medicine
DX: N60.09 Solitary cyst of unspecified breast (principal); R92.8 Other abnormal and inconclusive findings on diagnostic imaging of breast
CPT/HCPCS: 76642; 77062; 77066; G0279

== ENCOUNTER 2024-04-02 10:23 | Outpatient (CLI) | payer MEDICARE, SELFPAY ==
[2024-04-02 19:13] LABS: Alanine Aminotransferase 19 U/L (6-35); Albumin Level 4.3 g/dL (3.5-5.1); Alkaline Phosphatase 124 U/L (38-126); Anion Gap 10 mmol/L (4-12); Aspartate Amino Transferase 25 U/L (14-36); Bilirubin,Total 0.7 mg/dL (0.2-1.3); Blood Urea Nitrogen 24 mg/dL (7-17); Calcium 9.5 mg/dL (8.4-10.2); Carbon Dioxide 28 mmol/L (22-30); Chloride 99 mmol/L (98-107); Cholesterol 245 mg/dL (0-200); Estimated Glomerular Filt Rate > 60; Glucose 99 mg/dL (65-110); HDL Direct 57 mg/dL; Sodium 137 mmol/L (137-145); Triglycerides 96 mg/dL (<150)
[2024-04-02 19:24] LABS: LDL Cholesterol Direct 156 mg/dL
== END 2024-04-02 10:24 | disposition home or self-care (01) ==
LOC: ANHGOSHLAB 10:25
PROVIDERS: PCP Family Medicine; Visit Provider Family Medicine
DX: E78.2 Mixed hyperlipidemia (principal); Z13.228 Encounter for screening for other metabolic disorders
CPT/HCPCS: 36415; 80053; 80061

== ENCOUNTER 2024-06-14 15:46 | Emergency (ER) | payer MEDICARE, SELFPAY ==
--- NOTE | ~2024-06-14 | XR_ITS ---
EXAMINATION: XR chest 2V Exam Date/Time: 06/14/2024 16:05 CDT HISTORY: cough, lung tightness x 3 weeks- COPD/asthma Comparison: 12/11/2022, report only. RESULT: Lines, tubes, and devices: Cholecystectomy clips. Lungs and pleura: Mild emphysematous/senescent change, otherwise clear. Cardiomediastinal silhouette: Stable. Other: No acute osseous or upper abdominal finding. IMPRESSION: No acute cardiopulmonary process. Reviewed, dictated and finalized at location K.
--- NOTE | 2024-06-14 15:53 | ED.SOB ---
HPI - SOB/Dyspnea General Chief Complaint: Upper Respiratory Infection Stated Complaint: Asthma Time Seen by Provider: 06/14/24 16:00 Source: patient Mode of arrival: ambulatory Limitations: no limitations History of Present Illness HPI Narrative: Faith is a an 83-year-old female patient presenting to the clinic today with complaints of asthma exacerbation. She reports over the last 3 weeks she has been increased shortness of breath with a nonproductive cough. She contacted her lorry weigher last week and they put her on a 5 day course of 40 mg of prednisone daily. She reports that the steroid did not really help. She is taking her scheduled inhalers/neb and using her rescue inhaler as needed. She denies any chest pain. She denies any fever or chills. Related Data Home Medications Medication Instructions Recorded Confirmed aspirin 81 mg tablet,delayed 81 mg PO DAILY 09/21/19 06/14/24 release (Adult Aspirin Regimen) latanoprost 0.005 % eye drops 1 drop ophthalmic (eye) QPM 09/21/19 06/14/24 meloxicam 15 mg tablet 15 mg PO DAILY 03/26/24 06/14/24 Allergies Allergy/AdvReac Type Severity Reaction Status Date / Time MARK Inhibitors Allergy Unknown Cough Verified 06/14/24 15:54 adhesive Allergy Unknown Rash Verified 06/14/24 15:54 atorvastatin Allergy Unknown Muscle Pain Verified 06/14/24 15:54 latex Allergy Unknown Rash Verified 06/14/24 15:54 Penicillins Allergy Unknown Rash Verified 06/14/24 15:54 Nrsukuw-WJF-StZ Reductase Allergy Unknown Muscle Pain Verified 06/14/24 15:54 Inhibitor [Lxhpggu-Wqm-Uha Reductase Inhibitor] Review of Systems Review of Systems: Pertinent positives per HPI. Patient denies any fever, chills, rash, headache, visual changes, dizziness, chest pain, palpitations, nausea, vomiting, diarrhea, constipation, abdominal pain, or any urinary issues. [facility] Past Medical History Medical History Asthma with exacerbation Bronchitis COPD with asthma Esophageal reflux Essential (primary) hypertension Mixed hyperlipidemia SVT (supraventricular tachycardia) Family History Family History Mother Family history of chronic obstructive pulmonary disease, Onset Age: 83 Sibling Family history of heart disease in male family member before age 55 Acute myocardial infarction Father Acute myocardial infarction Family history of coronary artery disease, Onset Age: 51 Grandparent Family history of cardiovascular disease, Onset Age: 89 Cerebrovascular accident Other Family history of allergic disorder Hypertension Social History Social History Smoking status: Never smoker Second hand tobacco smoke exposure: No Alcohol intake: current Lack of Transportation: No Lack of Food: Never True Current Housing: I Have Housing Concerned About Future Housing: No Difficulty Paying Gas/Electric Bills: No Difficulty Paying for Meds: No Currently Unemployed: No Education: Bachelor's Degree Difficulty w/ Childcare or Family Care: No Gender identity (if verbalized by the patient): Female Comments At the time of my signature, I reviewed and agree with the nursing past medical, surgical, social, and family history. There is no relevant family history pertinent to the patient complaint. Exam Narrative: General: Well-developed, well nourished, in no apparent distress Head: Normocephalic, atraumatic Eyes: Pupils equally round and reactive to light bilaterally, EOM intact, sclera and conjunctive clear, no discharge, lids normal Ears: TMs intact and clear, ear canals clear, no drainage, grossly hearing normal. Nose: Nares patent, no discharge, no inflammation, no sinus tenderness. Mouth: Oral pharynx without lesions or masses, good dentition, MMM. Neck: Supple, trachea
[2024-06-14 15:55] VITALS: BP 126/55; PULSE 89; RESP 18; TEMP 36.9; O2SAT 97
[2024-06-14 15:56] VITALS: BP 126/55; PULSE 89; RESP 18; TEMP 36.9; O2SAT 97
== END 2024-06-14 16:32 | disposition home or self-care (01) ==
PROVIDERS: Emergency Provider Nurse Practitioner Family
DX: J40 Bronchitis, not specified as acute or chronic (principal); J44.9 Chronic obstructive pulmonary disease, unspecified; I10 Essential (primary) hypertension; E78.2 Mixed hyperlipidemia; K21.9 Gastro-esophageal reflux disease without esophagitis; Z79.82 Long term (current) use of aspirin
CPT/HCPCS: 71046; 99213; G0463

== ENCOUNTER 2024-07-28 12:39 | Outpatient (CLI) | payer MEDICARE, SELFPAY ==
--- NOTE | 2024-07-28 12:52 | ECHO_ITS ---
Patient Info Name: Faith Collins Age: 83 years : 1940 Gender: Female Ht: 59 in Wt: 144 lbs BSA: 1.67 m2 HR: 75 bpm BP: 131 / 71 mmHg Heart Rhythm: Sinus Rhythm Technical Quality: Fair Exam Date: 07/28/2024 12:54 PM Exam Location: Echo Lab Patient Status: Outpatient Admit Date: 07/28/2024 Staff Ordering Physician: Román Lopez APRN Cutting Machine Offbearer: Citlali Boyd RDCS Attending Provider: Román Lopez APRN Referring Physician: John CASTELLANOS; Exam Type: CA echo doppler color flow Study Info Indications R06.09 - Other forms of dyspnea Complete two-dimensional, color flow and Doppler transthoracic echocardiogram is performed. Summary 1. Complete two-dimensional, color flow and Doppler transthoracic echocardiogram is performed. 2. Left ventricular chamber dimension is normal. 3. Left ventricular systolic function is normal, estimated at 60-65%. 4. The left ventricular diastolic function is grade I diastolic dysfunction. 5. E/e' 18 is elevated. 6. Left atrial chamber dimension is mildly enlarged. 7. There is mild aortic valve sclerosis. 8. There is mild aortic valve regurgitation. 9. There is trace mitral valve regurgitation. 10. There is trace tricuspid valve regurgitation. 11. No pulmonary hypertension, estimated pulmonary arterial systolic pressure is 32 mmHg. Left Ventricle E/e' 18 is elevated. Left ventricular chamber dimension is normal. Left ventricular systolic function is normal, estimated at 60-65%. The left ventricular diastolic function is grade I diastolic dysfunction. Right Ventricle Right ventricular systolic function is normal and with normal TAPSE 2.2 cm. Right ventricular chamber dimension is normal. Left Atria Left atrial chamber dimension is mildly enlarged. Right Atria Right atrial chamber dimension is normal. Aortic Valve The aortic valve is trileaflet. There is mild aortic valve sclerosis. There is no aortic valve stenosis. There is mild aortic valve regurgitation. Pulmonic Valve There is no pulmonic regurgitation. Mitral Valve There is no mitral valve stenosis. There is trace mitral valve regurgitation. Tricuspid Valve There is trace tricuspid valve regurgitation. No pulmonary hypertension, estimated pulmonary arterial systolic pressure is 32 mmHg. Pericardium/Pleural There is no pericardial effusion. Inferior Vena Cava Normal inferior vena cava with >50% collapse upon inspiration consistent with normal right atrial pressure, 5 mmHg. Aorta The aortic root size at the sinus of Valsalva is normal. Left Ventricular Outflow Tract Name Value Normal LVOT 2D LVOT Diameter 1.9 cm LVOT Doppler LVOT Peak Gradient 7 mmHg LVOT Mean Gradient 3 mmHg LVOT VTI 24 cm LVOT VTI/AV VTI Ratio 0.7 LVOT Stroke Volume 65 ml LVOT CO 4.3 l/min LVOT CI 2.6 l/min/m2 Pulmonic Valve Name Value Normal RVOT Doppler RVOT Peak Gradient 4 mmHg PV Doppler PV Peak Gradient 5 mmHg Mitral Valve Name Value Normal MV Doppler MV Decel Sweet [place] 642 cm/s2 MV PHT 45 ms MV Area (PHT) 4.9 cm2 4.0-5.0 MV Diastolic Function MV E Peak Velocity 99 cm/s MV A Peak Velocity 123 cm/s MV E/A 0.8 MV Decel Time 154 ms MV Annular TDI MV E/e' (Septal) 19.7 <=8.0 MV E/e' (Lateral) 17.8 <=8.0 MV E/e' (Average) 18.8 Tricuspid Valve Name Value Normal TV Regurgitation Doppler TR Peak Velocity 261 cm/s TR Peak Gradient 27 mmHg Estimated PAP/RSVP RA Pressure 5 mmHg <=5 PA Systolic Pressure 32 mmHg <36 RV Systolic Pressure 32 mmHg <36 Aorta Name Value Normal Ascending Aorta Ao Root Diameter (MM) 2.4 cm Ao Root Diam Index (MM) 1.5 cm/m2 Aortic Valve Name Value Normal AV Doppler AV Peak Velocity 181 cm/s AV Peak Gradient 13 mmHg AV Mean Gradient 6 mmHg AV VTI 34 cm AV Area (Cont Eq VTI) 1.9 cm2 >=3.0 AV Area (Cont Eq Nick) 1.9 cm2 AV Regurgitation 2D LVOT Area 2.7 cm2 AV Regurgitation Doppler AR Decel Time 1,782 ms AR Decel Sweet Grass 191 cm/s2 AR PHT 517 ms Ventricles Name Value Normal LV Dimensions 2D/MM IVS Diastolic Thickness (2D) 0.8 cm 0.6-1.0 LVID Diastole (2D) 4.7 cm 3.8-5.2 LVIW Diastolic Thickness (2D) 0.8 cm 0.6-0.9 LVID Systole (2D) 3.1 cm 2.2-3.5 LVOT Diameter 1.9 cm LV Mass (2D Cubed) 115.02 g 67.00-162.00 LV Mass Index (2D Cubed) 69 g/m2 43-95 Relative Wall Thickness (2D) 0.32 LV Fractional Shortening/Ejection Fraction 2D/MM LV Fractional Shortening (2D) 34 % 27-45 LV EF (2D Teicholz) 63 % 54-74 LV Diastolic Volume (4C MOD) 56 ml LV EF (4C MOD) 66 % LV Diastolic Volume (2C MOD) 54 ml LV EF (2C MOD) 63 % LV Diastolic Volume (BP MOD) 56 ml 46-106 LV Diastolic Volume Index (BP MOD) 34 ml/m2 29-61 LV Systolic Volume (BP MOD) 20 ml 14-42 LV Systolic Volume Index (BP MOD) 12 ml/m2 8-24 LV EF (BP MOD) 65 % 54-74 LV Diastolic Length (4C) 6.7 cm LV Systolic Length (4C) 5.6 cm LV Stroke Volume (4C MOD) 37 ml Atria Name Value Normal LA Dimensions LA Dimension (MM) 4.0 cm 2.7-3.8 LA Volume (4C A-L) 60 ml LA Volume (BP A-L) 58 ml RA Dimensions RA Area (4C) 13.6 cm2 <=18.0 Report Signatures
[2024-07-28 13:02] LABS: Basophils Absolute Auto 0.1 K/mm3 (0.0-0.1); Basophils Percent Auto 1.4 % (0.2-1.2); Eosinophils Absolute Auto 0.1 K/mm3 (0-0.3); Hematocrit 40.3 % (37.0-47.0); Hemoglobin 12.9 g/dL (12.0-15.0); Immature Granulocyte Absolute 0.04 K/mm3 (0.00-0.031); Immature Granulocyte Percent A 0.4 % (0-0.5); Lymphocytes Absolute Auto 1.75 K/mm3 (0.9-3.2); Lymphocytes Percent Auto 18.6 % (18.3-44.2); Mean Corpuscular Hemoglobin 28.8 pg (26-34); Mean Platelet Volume 9.8 fl (7.4-10.4); Monocytes Absolute Auto 0.8 K/mm3 (0.1-0.6); Neutrophils Absolute Auto 6.6 K/mm3 (1.3-6.7); Neutrophils Percent Auto 70.6 % (45.5-73.1); Platelet Count Result 426 k/mm3 (150-375); Red Blood Count 4.48 M/mm3 (4.2-5.4); Red Cell Distribution Width 15.1 % (11.5-14.5); White Blood Count 9.4 K/mm3 (4.5-10.0)
== END 2024-07-28 12:40 | disposition home or self-care (01) ==
LOC: ANHCARD 12:40
PROVIDERS: PCP Internal Medicine; Visit Provider Nurse Practitioner Family
DX: R06.09 Other forms of dyspnea (principal); I35.1 Nonrheumatic aortic (valve) insufficiency
CPT/HCPCS: 36415; 85025; 93306

== ENCOUNTER 2024-08-18 10:59 | Outpatient (CLI) | payer MEDICARE, SELFPAY ==
--- NOTE | ~2024-08-18 | US_ITS ---
EXAMINATION:US venous doppler LE LT INDICATION:Left leg pain and swelling TECHNIQUE: Multiple grayscale, color flow and Doppler images of the left lower extremity deep venous systems were obtained and reviewed. COMPARISON:No prior studies for comparison. FINDINGS: The common femoral, superficial femoral and popliteal veins demonstrate normal respiratory variation, augmentation and compressibility. Color flow is also seen within the posterior tibial, pe roneal, greater saphenous and profunda veins. IMPRESSION: 1: No lower extremity deep venous thrombosis. Reviewed, dictated and finalized at location B. [employer]
== END 2024-08-18 11:00 | disposition home or self-care (01) ==
LOC: ANHIMG 11:04
PROVIDERS: PCP Internal Medicine; Visit Provider Clinical Nurse Specialist
DX: M79.89 Other specified soft tissue disorders (principal)
CPT/HCPCS: 93971

== ENCOUNTER 2024-11-18 09:51 | Outpatient (CLI) | payer MEDICARE, SELFPAY ==
--- OUTSIDE RECORDS SUMMARY | 2024-11-18 11:08 | XMS_ITS | Data Portability ---
Author Organization [place] - [facility] [employer], Main Office Address [address] [place] [address] Care Team Providers Care Newspaper Photographer Name Role Phone DARLENE ZAPATA Primary Care Provider [phone] DARLENE ZAPATA Referring Provider [phone] Assessment Encounter Date Assessment Date Assessment LastModified by Organization Details LastModified Time 01/20/2024 01/20/2024 83-year-old patient presents today for right hip pain that has been going on for about 6 months but has recently gotten worse in the last 2 months. She states that she has pain with daily activities and has a clicking sound in the hip. Her biggest complaint is pain at night that keeps her awake. Pain is located on the outside of her right hip. She states that she has had hip bursitis in the past that has gone away. For treatment she has tried Advil, which did not help and tramadol, which helped some. Imaging: X-rays reviewed of the right hip show mild degenerative changes joint space narrowing. No acute bony abnormality or fracture. Physical exam: Slightly antalgic gait. Pain with palpitation over the right lateral trochanter. Some tenderness with palpitation down the IT band. Pain over the lateral hip with internal rotation. No pain with deep palpitation into the groin. We will start with a course of physical therapy to help stretch and strengthen her hip. We will also order meloxicam for anti-inflammator y therapy. Since the pain is keeping her awake at night we discussed the risks and benefits of a cortisone injection into the trochanteric bursa. She elected to proceed with the injection today. We will see her back in 6-8 weeks to check her progress. [email or web address] Not available 01/20/2024 11:13:44 03/16/2024 03/16/2024 83-year-old female presents for follow-up of her right hip. She has been doing physical therapy which has significantly helped. The Mobic upset her stomach so she stopped that. The injection did not help much at all last time. She currently rates her pain as 5/10. She wants to do more physical therapy. Slightly antalgic gait. Pain with palpitation over the right lateral trochanter. Some tenderness with palpitation down the IT band. Pain over the lateral hip with internal rotation. No pain with deep palpitation into the groin. She should continue doing physical therapy for her trochanteric bursitis and ITB tendonitis. We gave her a renewal for her PT order. She also complained of some issues with her right shoulder so we will add that the physical therapy. We can see her back For her shoulder as well and get x-rays for that if she wants. Follow up as needed. [email or web address] Not available 03/16/2024 12:37:41 Plan of Treatment Reminders Order Date Submit Date Provider Last Modified By Organization Details Last Modified Time Details Appointments None recorded. Lab None recorded. Referral physical therapist referral - Eval and treat R-shoulderA lso continue R-hip PT m25.551 2023 [facility] [place] [facility], [address], [place], [address], 12:51:36 physical therapist referral - Please schedule pt for R hip. Thanks 2023 024 [facility] [place] [facility], [address], [place], [address], 12:09:46 Procedures injection/a spiration joint/bursa (PROC) 2023 024 [email or web address] In-Office Order, Internal Use Only DO Not Attach Compendium DO Not Attach Compendium, Do Not Delete/merge, [id number] 10:30:32 Surgeries None recorded. Imaging XR, hip + pelvis, unilateral, 2 or 3 view 2023 024 [email or web address] [place], [address], [place], [address], 4 00:25:35 Medication Orders Mobic 15 mg tablet [address] [facility], [address], [place], [place], [id number], 4 00:25:35 bupivacaine HCl 0.5 % (5 mg/mL) injection solution [address] [facility], [address], [place], [id number], 4 00:25:35 Kenalog 10 mg/mL suspension for injection [address] [facility], [address], [place], [place], [id number], 4 00:25:35 Patient TargetsNo targets recorded. Patient InstructionsNo instructions recorded. Reason for Referral Physical Therapist Referral for Pain in right hip joint R hip Please schedule pt for R hip. Thanks Referring Physician: Ally Cole, Orthopedic Surgery, Encounter Date: 01/20/2024 Physical Therapist Referral for Pain of right shoulder joint Eval and treat R-shoulderAlso continue R-hip PT m25.551 Referring Physician: Keith Flores, Orthopedic Surgery, Encounter Date: 03/16/2024 Results Created Date Observation Date Name Description Value Unit Range Abnormal Flag Note LastModifiedBy Organization Detail LastModifiedTime 07/26/20 22 07/26/2022 XR, shoul katherine, 2 or more view No observ ation record ed. [id number] [facility] [place] [address], [place], [address], 11/13/2022 13:36:46 01/20/20 24 XR, hip + pelvi s, unila teral , 2 or 3 view No observ ation record ed. [email or web address] [facility] [place] [address], [place], [address], 01/20/2024 11:09:27 Result Notes None recorded. Problems Name Problem SNOMED Code Status Onset Date Resolution Date Notes Provider Name and Address Organization Details Recorded Time Disorder of shoulder 051962549 Active Not Available [facility] 3 13:32:58 Localized, primary osteoarthr itis of the shoulder region 332712646 Active Not Available [facility] 3 13:32:58 Osteoarthr itis of knee 932102675 Active Not Available [facility] 13:32:58 Current tear of lateral cartilage AND/OR meniscus of knee Active Not Available [facility] 3 13:32:58 Osteoarthr itis 805002033 Active Not Available [facility] 3 13:32:58 Disorder of rotator cuff 625157488 Active Not Available [facility] 3 13:32:58 Pain in right hip joint 0643516804507 02 Active 2023 JULIANA Cole, [employer] 4 09:58:15 Pain of right shoulder joint 4800907269211 9100 Active 2023 Stephanie webb, [employer] 4 10:43:37 Problem Notes None recorded. Procedures Surgical History Date Name Laterality Status Provider Name and Address Organization Details Recorded Time 01/20/20 24 Ortho - Cortisone Injection completed Ally Cole NP [address] [facility], [place], [address], [facility] [employer] 01/20/2024 11:09:23 Knee completed Not Available [facility] 11/13/2022 13:30:49 Cataract Surgery completed Not Available [facility] 11/13/2022 13:30:49 Appendectomy completed Not Available [facility] 11/13/2022 13:30:49 Shoulder completed Not Available [facility] 11/13/2022 13:30:49 Cholecystectomy completed Not Available [facility] 11/13/2022 13:30:49 Foot Surgery completed Not Available [facility] 11/13/2022 13:30:49 Retina completed Not Available [facility] 11/13/2022 13:30:49 Imaging Results Imaging Date Name Status LastModified by Organiz ation Details LastModified Time 07/26/2022 XR, shoulder, 2 or more view completed [id number] [facility] [place] [address], [place], [address], 11/13/2022 13:36:46 01/20/2024 XR, hip + pelvis, unilateral , 2 or 3 view completed [email or web address] [facility] [place] [address], [place], [address], 01/20/2024 11:09:27 Procedure Notes None recorded. Medical Equipment None Reported. Allergies Allergen ID Allergen Name Allergen Category Reaction Reaction Severity Criticality Documentation Date Start Date Code Code System Note Provider Name and Address Organization Details Recorded Time 38917 Product containin g penicilli n (product) medicatio n Not available Not available Not available 11/13/2022 94158 8001 SNOMED Not Available [facility] 13:36:39 62403 adhesive environme nt,medica tion Not available Not available Not available 11/13/2022 53658 UNK Not Available [facility] 13:36:39 Medications Name Sig Start Date Stop Date Status Note LastModified by Organization Details LastModified Time cyclobenzap rine 10 mg tablet 07/26 completed Not Available Not Available Not Available furosemide 40 mg tablet TK 1 T PO QD FOR 30 DAYS 07/26 completed Not Available Not Available Not Available latanoprost 0.005 % eye drops INSTILL 1 DROP IN BOTH EYES EVERY NIGHT AT BEDTIME active Not Available Not Available No t Available rabeprazole 20 mg tablet,chencho yed release TK 1 T PO QD 01/18 completed Not Available Not Available Not Available doxycycline hyclate 100 mg capsule TAKE 1 CAPSULE BY MOUTH EVERY 12 HOURS FOR 5 DAYS 01/19 completed Not Available Not Available Not Available ipratropium 0.5 mg-albutero l 3 mg (2.5 mg base)/3 mL nebulizatio n soln USE 3 ML VIA NEBULIZER EVERY 6 HOURS NEEDED FOR ASTHMA 01/18 completed Not Available Not Available Not Available Klor-Con 10 mEq tablet,exte nded release 07/26 completed Not Available Not Available Not Available clindamycin HCl 300 mg capsule TAKE 1 CAPSULE BY MOUTH EVERY 6 HOURS 03/09 completed Not Available Not Available Not Available atorvastati n 10 mg tablet 07/26 completed Not Available Not Available Not Available azithromyci n 250 mg tablet 03/09 completed Not Available Not Available Not Available hydrocodone 5 mg-acetamin ophen 325 mg tablet TAKE 1 TABLET BY MOUTH EVERY 6 HOURS NEEDED FOR PAIN active Not Available Not Available No t Available meloxicam 15 mg tablet TAKE 1 TABLET BY MOUTH EVERY DAY active Not Available Not Available No t Available bupivacaine HCl 0.5 % (5 mg/mL) injection solution Take 4 mL by injection route. 2023 active Not Available Not Available Not Avai lable prednisone 20 mg tablet TAKE 1 TABLET BY MOUTH DAILY 07/26 completed Not Available Not Available Not Available acetaminoph en 300 mg-codeine 30 mg tablet 07/26 completed Not Available Not Available Not Available sulfamethox azole 800 mg-trimetho prim 160 mg tablet 07/26 completed Not Available Not Available Not Available triamcinolo ne acetonide 0.1 % topical cream 07/26 completed Not Available Not Available Not Available ciprofloxac in 0.3 % eye drops 07/26 completed Not Available Not Available Not Available Kenalog 10 mg/mL suspension for injection Take 1 mL by injection route. 2023 active [facility]: [phone] Not Available Not Available Not Available diltiazem CD 300 mg capsule,ext ended release 24 hr TAKE 1 CAPSULE BY MOUTH DAILY 01/18 completed Not Available Not Available Not Available doxycycline monohydrate 100 mg capsule TAKE 1 CAPSULE BY MOUTH TWICE DAILY active Not Available Not Available No t Available cephalexin 500 mg capsule TAKE 1 CAPSULE BY MOUTH EVERY 8 HOURS 01/19 completed Not Available Not Available Not Available WelChol 625 mg tablet 07/26 completed Not Available Not Available Not Available mometasone 50 mcg/actuati on nasal spray USE 2 SPRAYS IN EACH NOSTRIL QD 07/26 completed Not Available Not Available Not Available omeprazole 20 mg capsule,del ayed release TAKE ONE CAPSULE BY MOUTH DAILY 01/18 completed Not Available Not Available Not Available raloxifene 60 mg tablet 07/26 completed Not Available Not Available Not Available diclofenac sodium 75 mg tablet,chencho yed release 07/26 completed Not Available Not Available Not Available verapamil ER (SR) 240 mg tablet,exte nded release 07/26 completed Not Available Not Available Not Available montelukast 10 mg tablet TK 1 T PO QD IN THE EVENING 07/26 completed Not Available Not Available Not Available furosemide 20 mg tablet 07/26 completed Not Available Not Available Not Available azelastine 137 mcg (0.1 %) nasal spray USE 1 SPRAY IN EACH NOSTRIL EVERY 12 HOURS 01/19 completed Not Available Not Available Not Available cefuroxime axetil 500 mg tablet 07/26 completed Not Available Not Available Not Available levofloxaci n 500 mg tablet 07/26 completed Not Available Not Available Not Available methylpredn isolone 4 mg tablets in a dose pack FOLLOW PACKAGE DIRECTION S 01/19 completed Not Available Not Available Not Available albuterol sulfate HFA 90 mcg/actuati on aerosol inhaler INHALE 1 PUFF EVERY 4 HOURS active Not Available Not Available No t Available losartan 50 mg-hydrochl orothiazide 12.5 mg tablet TK 1 T PO QD 01/18 completed Not Available Not Available Not Available candesartan 8 mg tablet TAKE 1 TABLET BY MOUTH DAILY active Not Available Not Available No t Available doxycycline hyclate 100 mg tablet TAKE 1 TABLET BY MOUTH TWICE DAILY active Not Available Not Available No t Available Zetia 10 mg tablet 07/26 completed Not Available Not Available Not Available Premarin 0.625 mg/gram vaginal cream 07/26 completed Not Available Not Available Not Available potassium chloride ER 10 mEq tablet,exte nded release(par t/cryst) TAKE 1 TABLET PO D 07/26 completed Not Available Not Available Not Available Flovent HFA 110 mcg/actuati on aerosol inhaler INHALE 1 PUFF BY MOUTH TWICE DAILY 07/26 completed Not Available Not Available Not Available levalbutero l HFA 45 mcg/actuati on aerosol inhaler INHALE 2 PUFFS PO Q 6 H 01/18 completed Not Available Not Available Not Available Advair HFA 115 mcg-21 mcg/actuati on aerosol inhaler INHALE 2 PUFFS BY MOUTH TWICE DAILY 07/26 completed Not Available Not Available Not Available MoviPrep 100 gram-7.5 gram-2.691 gram oral powder packet 07/26 completed Not Available Not Available Not Available Reusable Nebulizer Kit USE DIRECTED active Not Available Not Available No t Available hydrochloro thiazide 12.5 mg tablet TAKE 1 TABLET BY MOUTH DAILY 01/18 completed Not Available Not Available Not Available budesonide- formoterol HFA 160 mcg-4.5 mcg/actuati on aerosol inhaler USE 2 PUFFS BY MOUTH EVERY 12 HOURS FOR 30 DAYS. RINSE AND SPIT AFTER USE active Not Available Not Available No t Available Durezol 0.05 % eye drops 07/26 completed Not Available Not Available Not Available WelChol 3.75 gram oral powder packet 07/26 completed Not Available Not Available Not Available Prevnar 13 (PF) 0.5 mL intramuscul ar syringe ADM 0.5ML IM UTD 07/26 completed Not Available Not Available Not Available ropivacaine (PF) 5 mg/mL (0.5 %) injection solution Take 20 mg by injection route. 01/18 completed Not Available Not Available Not Available Prolensa 0.07 % eye drops 07/26 completed Not Available Not Available Not Available Breo Ellipta 100 mcg-25 mcg/dose powder for inhalation USE 1 PUFF BY INHALATIO N QD AT THE SAME TIME EACH DAY 07/26 completed Not Available Not Available Not Available Virtussin AC 10 mg-100 mg/5 mL oral liquid 07/26 completed Not Available Not Available Not Available Fluvirin 7303-4596 45 mcg (15 mcg x 3)/0.5 mL intramuscul ar suspension INJECT 0.5 ML INTRAMUSC ULARLY DIRECTED. 07/26 completed Not Available Not Available Not Available Fluzone High-Dose (PF) 180 mcg/0.5 mL intramuscul ar syringe 11/11 /2022 completed Not Available Not Available Not Available Fluad 65yr up(PF)45 mcg(15 mcgx3)/0.5 mL intramuscul ar syringe ADM 0.5ML IM UTD 07/26 completed Not Available Not Available Not Available Fluad 65yr up(PF)45 mcg(15 mcgx3)/0.5 mL intramuscul ar syringe ADM 0.5ML IM UTD 07/26 completed Not Available Not Available Not Available Fluad 65yr up(PF)45 mcg(15 mcgx3)/0.5 mL intramuscul ar syringe ADM 0.5ML IM UTD 07/26 completed Not Available Not Available Not Available Trelegy Ellipta 200 mcg-62.5 mcg-25 mcg powder for inhalation INHALE 1 PUFF BY MOUTH DAILY 07/26 completed Not Available Not Available Not Available Vitals Date Recorded Body mass index (BMI) Body height Body weight Provider Name and Address Organization Details Last Updated DateTime 07/26/2022 29.3 kg/m2 152.4 cm 16986.86 g Not Available [facility] 11/13/2022 13:32:07 Date Recorded Body height Provider Name an d Address Organization Details Last Updated DateTime 09/04/2022 152.4 cm Not Available [facility] 13:32:06 Date Recorded Body height Body mass index (BMI) Body weight Pain severity - 0-10 verbal numeric rating [Score] - Reported Provider Name and Address Organization Details Last Updated DateTime 01/20/2024 149.86 cm 28.3 kg/m2 96539.93 g 8 JULIANA Cole [employer] 01/20/2024 09:56:37 Date Recorded Body height Body mass index (BMI) Body weight Pain severity - 0-10 verbal numeric rating [Score] - Reported Provider Name and Address Organization Details Last Updated DateTime 03/16/2024 149.86 cm 28.7 kg/m2 27689.12 g 5 JULIANA Cole [employer] 03/16/2024 10:34:25 Social History Question Answer Notes LastModified by Organizat ion Details LastModified Time Tobacco Smoking Status Never Smoker Not Available [facility] 11/13/2022 13:30:37 What Is Your Level Of Alcohol Consumption? None [id number] Information not available 11/13/2022 What Was The Date Of Your Most Recent Tobacco Screening? 01/20/2024 Information not available 01/20/2024 Sex: Unknown Functional Status None recorded. Mental Status None recorded. Family History Relationship Description Onset Age of this Age Resolved Age Notes LastModified by Organization Details LastModified Time Father Heart disease [id number] Not available 11/13/2022 13:30:50 Mother Heart disease [id number] Not available 11/13/2022 13:30:50 Medical History Condition Response ULCERS Y HEART ARRHYTHMIA Y LUNG DISEASE/DISORDER Y COPD Y HYPERTENSION Y Gynecological HistoryNo gynecological history recorded. Obstetrics History GPAL:G 0 P 0 0 0 0 Past Encounters Encounter ID Performer Location Encounter Start Date Encounter Closed Date Diagnosis/Indication Diagnosis SNOMED-CT Code Diagnosis ICD10 Code Diagnosis Note [id number] [facility] [place] [address] [place] [address] 07/26/2022 00:00:00 07/26/2022 12:20:58 [id number] [facility] [place] [address] [place] [address] 09/04/2022 00:00:00 09/04/2022 14:32:15 [id number] Ally Cole NP [facility] [place] [address] [place] [address] 01/20/2024 09:39:55 01/20/2024 10:32:08 Pain in right hip joint 2531370424 41031 M25.570 [id number] Keith Flores MD [facility] [place] [address] [place] [address] 03/16/2024 10:21:03 03/16/2024 10:43:18 Pain in right hip joint 3665456076 47933 M25.551 Pain of ri ght shoulder joint 7859091616 0456522 M25.511 Health Concerns Section Related Observation LastModified by Organization Detai ls LastModified Time None Recorded Concern Status LastModified by Organization Details LastModified Time None Recorded Advance Directives Directive None Recorded Payers Encounter Date Sequence Insurance Name Policy Number Policy Pandey Covered Member ID Pandey Member ID Guarantor Name 01/20/2024 1 [employer] [id number] Faith Collins [id number] Faithирина Collins 03/16/2024 1 [employer] [id number] Faithирина Collins [id number] Faith W Karina OBGyn Episode No OBEpisode recorded.
--- OUTSIDE RECORDS SUMMARY | 2024-11-18 11:08 | XMS_ITS | Clinical Summary ---
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 Gender Identity Not on file Sexual Orientation Not on file Plan of Treatment Health Maintenance Due Date Last Done Comments Depression Screening 1940 Fall Risk Assessment 1940 Osteoporosis Screening-Bone Density Scan 1940 Hepatitis B Screening 1958 Zoster Vaccine (1 of 2) 1990 Well Visit 65+ 2005 Covid-19 Vaccine (2023-2 5 season) 2024 06/06/2022, 01/11/2022, 07/16/2021, Additional history exists Influenza Vaccine (#1) 2024 , 06/14/2021, 06/12/2020, Additional history exists DTaP/Tdap/Td Vaccine (2 - Td or Tdap) 05/28/2026 05/28/2016 Pneumococcal vaccine 65+ Completed 020, 07/07/2017, 06/24/2000 Insurance [place] Care Teams Hand Kiss Setter Relationship Specialty Start Date End Date Azam Baxter DO [address] [place] [address] DR HERNAN[address]Z [address] [place] [address] [phone] PCP - General Family Medicine 02/26/24
[2024-11-18 11:09] LABS: Alanine Aminotransferase 22 U/L (6-35); Albumin Level 4.1 g/dL (3.5-5.1); Alkaline Phosphatase 108 U/L (38-126); Anion Gap 9 mmol/L (4-12); Aspartate Amino Transferase 22 U/L (14-36); Bilirubin,Total 0.9 mg/dL (0.2-1.3); Blood Urea Nitrogen 18 mg/dL (7-17); Calcium 9.7 mg/dL (8.4-10.2); Carbon Dioxide 28 mmol/L (22-30); Chloride 100 mmol/L (98-107); Cholesterol 231 mg/dL (0-200); Estimated Glomerular Filt Rate > 60; Glucose 103 mg/dL (65-110); HDL Direct 58 mg/dL; Potassium 4.3 mmol/L (3.4-5.0); Sodium 137 mmol/L (137-145); Triglycerides 109 mg/dL (<150)
--- OUTSIDE RECORDS SUMMARY | 2024-11-18 11:09 | XMS_ITS | Referral Summary ---
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
[2024-11-18 11:21] LABS: LDL Cholesterol Direct 130 mg/dL
== END 2024-11-18 09:52 | disposition home or self-care (01) ==
PROVIDERS: PCP Internal Medicine; Visit Provider Internal Medicine Cardiovascular Disease
DX: E78.5 Hyperlipidemia, unspecified (principal)
CPT/HCPCS: 36415; 80053; 80061

== ENCOUNTER 2024-12-28 19:47 | Emergency (ER) | payer MEDICARE, SELFPAY ==
--- NOTE | ~2024-12-28 | CT_ITS ---
CT head without contrast Indication: Head injury Technique: Serial scans were obtained through the brain without the administration of contrast. Dose reduction technique was used on this scan by utilizing automated exposure control and iterative recon struction technique. The dose-length product (DLP) was 681.00 mGy-cm. Findings: There is no evidence of intracranial hemorrhage, mass lesion, or acute infarct. The ventri cles and subarachnoid spaces are dilated, consistent with mild atrophy. Low attenuation regions are seen within the periventricular white matter bilaterally, likely representing changes from chronic mi crovascular ischemic disease. There is no evidence of edema, mass effect or midline shift. The visu alized paranasal sinuses and mastoid air cells are clear. Impression: No intracranial hemorrhage, mass, or acute infarct. Atrophy and chronic white matter changes, as above. Reviewed, dictated and finalized at location . Impression: No intracranial hemorrhage, mass, or acute infarct. Atrophy and chronic white matter changes, as above.
[2024-12-28 19:46] VITALS: BP 106/56; PULSE 84; RESP 15; TEMP 36.6; O2SAT 97
--- NOTE | 2024-12-28 20:09 | ECG_ITS ---
Test Date: 2024-12-28 19:52:42 Measurements Intervals Joffre Rate: 81 P: 5 KS: 160 QRS: 257 QRSD: 83 T: 28 QT: 369 QTc: 430 Interpretive Statements SINUS RHYTHM POOR R WAVE PROGRESSION INFERIOR INFARCT, AGE INDETERMINATE BASELINE ARTIFACT- I, II, III, AVR, AVL, AVF, V1 ABNORMAL ECG No previous ECG available for comparison Electronically Signed On 12-29-2024 06:42:25 CDT by Edil Oakes D.O.
--- OUTSIDE RECORDS SUMMARY | 2024-12-28 20:21 | XMS_ITS | Data Portability ---
Author Organization [place] - [facility] [employer], Main Office Address [address] [place] [address] Care Team Providers Care Insurance Underwriter Sales Name Role Phone DARLENE ZAPATA Primary Care Provider DARLENE ZAPATA Referring Provider [phone] Assessment Encounter Date Assessment Date Assessment LastModified [...] R-shoulderA lso continue R-hip PT m25.551 2023 [facility] [place] [facility], [address], [place], [address], 12:51:36 physical therapist referral - Please schedule pt for R hip. Thanks 2023 024 [facility] [place] [facility], [address], [place], [address], 12:09:46 Procedures injection/a spiration joint/bursa (PROC) 2023 024 [email or web address] In-Office Order, Internal Use Only DO Not Attach Compendium DO Not Attach Compendium, Do Not Delete/merge, [id number] 10:30:32 Surgeries None recorded. Imaging XR, hip + pelvis, unilateral, 2 or 3 view 2023 024 [email or web address] [place], [address], [place], [address], 4 00:25:35 Medication Orders Mobic 15 mg tablet [address] [id number], [address], [place], [place], [id number], 4 00:25:35 bupivacaine HCl 0.5 % (5 mg/mL) injection solution [address] [id number], [address], [place], [id number], 4 00:25:35 Kenalog 10 mg/mL suspension for injection [address] [id number], [address], [place], [place], [id number], 4 00:25:35 Patient TargetsNo targets recorded. Patient [...] more view No observ ation record ed. [id number] [facility] [place] [address], [place], [address], 11/13/2022 13:36:46 01/20/20 24 XR, hip + pelvi s, unila teral , 2 or 3 view No observ ation record ed. [email or web address] [facility] [place] [address], [place], [address], 01/20/2024 11:09:27 Result Notes None recorded. Problems Name Problem SNOMED Code Status Onset Date Resolution Date Notes Provider Name and Address Organization Details Recorded Time Disorder of shoulder 871991783 Active Not Available [facility] 3 13:32:58 Localized, primary osteoarthr itis of the shoulder region 258129894 Active Not Available [facility] 3 13:32:58 Osteoarthr itis of knee 610684837 Active Not Available [facility] 13:32:58 Current tear of lateral cartilage AND/OR meniscus of knee Active Not Available [facility] 3 13:32:58 Osteoarthr itis 964146381 Active Not Available [facility] 3 13:32:58 Disorder of rotator cuff 354941428 Active Not Available [facility] 3 13:32:58 Pain in right hip joint 9446543094275 02 Active 2023 JULIANA Cole, [employer] 4 09:58:15 Pain of right shoulder joint 3104688891256 9100 Active 2023 Stephanie webb, [employer] 4 10:43:37 Problem Notes None recorded. Procedures Surgical History Date Name Laterality Status Provider Name and Address Organization Details Recorded Time 01/20/20 24 Ortho - Cortisone Injection completed Ally Cole NP [address] [facility], [place], [address], [facility] [employer] 01/20/2024 11:09:23 Knee completed Not Available [facility] 11/13/2022 13:30:49 Cataract Surgery completed Not Available [facility] 11/13/2022 13:30:49 Appendectomy completed Not Available [facility] 11/13/2022 13:30:49 Shoulder completed Not Available [facility] 11/13/2022 13:30:49 Cholecystectomy completed Not Available [facility] 11/13/2022 13:30:49 Foot Surgery completed Not Available [facility] 11/13/2022 13:30:49 Retina completed Not Available [facility] 11/13/2022 13:30:49 Imaging Results Imaging Date Name Status LastModified by Organiz ation Details LastModified Time 07/26/2022 XR, shoulder, 2 or more view completed [id number] [facility] [place] [address], [place], [address], 11/13/2022 13:36:46 01/20/2024 XR, hip + pelvis, unilateral , 2 or 3 view completed [email or web address] [facility] [place] [address], [place], [address], 01/20/2024 11:09:27 Procedure Notes None recorded. Medical Equipment None Reported. Allergies Allergen ID Allergen Name Allergen Category Reaction Reaction Severity Criticality Documentation Date Start Date Code Code System Note Provider Name and Address Organization Details Recorded Time 82030 Product containin g penicilli n (product) medicatio n Not available Not available Not available 11/13/2022 87790 8001 SNOMED Not Available [facility] 13:36:39 22136 adhesive environme nt,medica tion Not available Not available Not available 11/13/2022 00198 UNK Not Available [facility] 13:36:39 Medications Name Sig Start Date [...] 1 mL by injection route. 2023 active [facility] [place]: [id number] Not Available Not Available [...] Not Available Not Available Not Available Fluvirin 6286-1344 45 mcg (15 mcg x 3)/0.5 mL [...] Updated DateTime 07/26/2022 29.3 kg/m2 152.4 cm 82333.86 g Not Available [facility] 11/13/2022 13:32:07 Date Recorded Body height Provider Name an d Address Organization Details Last Updated DateTime 09/04/2022 152.4 cm Not Available [facility] 13:32:06 Date Recorded Body height Body mass index (BMI) Body weight Pain severity - 0-10 verbal numeric rating [Score] - Reported Provider Name and Address Organization Details Last Updated DateTime 01/20/2024 149.86 cm 28.3 kg/m2 30424.93 g 8 JULIANA Cole [employer] 01/20/2024 09:56:37 Date Recorded Body height Body mass index (BMI) Body weight Pain severity - 0-10 verbal numeric rating [Score] - Reported Provider Name and Address Organization Details Last Updated DateTime 03/16/2024 149.86 cm 28.7 kg/m2 28561.12 g 5 JULIANA Cole [employer] 03/16/2024 10:34:25 Social History Question Answer Notes LastModified by Organizat ion Details LastModified Time Tobacco Smoking Status Never Smoker Not Available [facility] 11/13/2022 13:30:37 What Is Your Level Of Alcohol Consumption? None [id number] Information not available 11/13/2022 What Was The Date Of Your Most Recent Tobacco Screening? 01/20/2024 [email or web address] Information not available 01/20/2024 Sex: Unknown Functional Status None recorded. Mental Status None recorded. Family History Relationship Description Onset Age of this Age Resolved Age Notes LastModified by Organization Details LastModified Time Father Heart disease [id number] Not available 11/13/2022 13:30:50 Mother Heart disease [id number] Not available 11/13/2022 13:30:50 Medical History Condition Response ULCERS Y HEART ARRHYTHMIA Y LUNG DISEASE/DISORDER Y COPD Y HYPERTENSION Y Gynecological HistoryNo gynecological history recorded. Obstetrics History GPAL:G 0 P 0 0 0 0 Past Encounters Encounter ID Performer Location Encounter Start Date Encounter Closed Date Diagnosis/Indication Diagnosis SNOMED-CT Code Diagnosis ICD10 Code Diagnosis Note [id number] [facility] [place] [address] [place] [address] 07/26/2022 00:00:00 07/26/2022 12:20:58 [id number] [facility] [place] [address] [place] [address] 09/04/2022 00:00:00 09/04/2022 14:32:15 [id number] Ally Cole NP [facility] [place] [address] [place] [address] 01/20/2024 09:39:55 01/20/2024 10:32:08 Pain in right hip joint 6563571416 17482 M25.646 [id number] Keith Flores MD [facility] [place] [address] [place] [address] 03/16/2024 10:21:03 03/16/2024 10:43:18 Pain in right hip joint 5944329602 80262 M25.551 Pain of ri ght shoulder joint 3127278217 1582258 M25.511 Health Concerns Section Related Observation LastModified by Organization Detai ls LastModified Time None Recorded Concern Status LastModified by Organization Details LastModified Time None Recorded Advance Directives Directive None Recorded Payers Encounter Date Sequence Insurance Name Policy Number Policy Pandey Covered Member ID Pandey Member ID Guarantor Name 01/20/2024 1 [employer] [employer] [id number] Faith Collins [id number] Faithирина Collins 03/16/2024 1 [employer] [place] [id number] Faithирина Collins [id number] Faith W Karina OBGyn Episode No OBEpisode recorded.
--- OUTSIDE RECORDS SUMMARY | 2024-12-28 20:21 | XMS_ITS | Referral Summary ---
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
--- OUTSIDE RECORDS SUMMARY | 2024-12-28 20:21 | XMS_ITS | Clinical Summary ---
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
[2024-12-28 20:36] LABS: Alanine Aminotransferase 22 U/L (6-35); Albumin Level 4.2 g/dL (3.5-5.1); Alkaline Phosphatase 75 U/L (38-126); Anion Gap 10 mmol/L (4-12); Aspartate Amino Transferase 38 U/L (14-36); Bilirubin,Total 0.7 mg/dL (0.2-1.3); Blood Urea Nitrogen 23 mg/dL (7-17); Calcium 9.1 mg/dL (8.4-10.2); Carbon Dioxide 24 mmol/L (22-30); Chloride 99 mmol/L (98-107); Estimated CRCL calculation 31 ml/min; Estimated Glomerular Filt Rate 51; Glucose 107 mg/dL (65-110); Magnesium 2.2 mg/dL (1.6-2.3); Potassium 4.2 mmol/L (3.4-5.0); Sodium 133 mmol/L (137-145)
[2024-12-28] MEDS: SODIUM CHLORIDE 0.9% IV 1,000 ML 999 ML IV CONT (21:19)
[2024-12-28 21:43] LABS: Basophils Absolute Auto 0.2 K/mm3 (0.0-0.1); Basophils Percent Auto 1.8 % (0.2-1.2); Eosinophils Absolute Auto 0.2 K/mm3 (0-0.3); Eosinophils Percent Auto 2.2 % (0-4.4); Hematocrit 37.7 % (37.0-47.0); Immature Granulocyte Absolute 0.02 K/mm3 (0.00-0.031); Immature Granulocyte Percent A 0.2 % (0-0.5); Lymphocytes Absolute Auto 2.23 K/mm3 (0.9-3.2); Lymphocytes Percent Auto 26.1 % (18.3-44.2); Mean Corpuscular HGB Conc 31.8 g/dl (32-36); Mean Corpuscular Hemoglobin 29.4 pg (26-34); Mean Corpuscular Volume 92.4 fl (80-100); Mean Platelet Volume 11.3 fl (7.4-10.4); Monocytes Absolute Auto 0.8 K/mm3 (0.1-0.6); Monocytes Percent Auto 9.8 % (2.6-8.5); Neutrophils Absolute Auto 5.1 K/mm3 (1.3-6.7); Neutrophils Percent Auto 59.9 % (45.5-73.1); Platelet Count Result 332 k/mm3 (150-375); Red Blood Count 4.08 M/mm3 (4.2-5.4); Red Cell Distribution Width 13.2 % (11.5-14.5); White Blood Count 8.6 K/mm3 (4.5-10.0)
[2024-12-28] MEDS: ACETAMINOPHEN 500 MG TABLET 1000 MG PO (21:44)
[2024-12-28 21:45] VITALS: BP 114/61; PULSE 73; RESP 14; O2SAT 98
--- NOTE | 2024-12-28 22:24 | ED_ITS ---
HPI - Dizziness General Chief Complaint: Dizziness Stated Complaint: DIZZINESS, FALL, FOREHEAD LAC Time Seen by Provider: 12/28/24 20:08 History of Present Illness HPI Narrative: Patient is an 82-year-old female who presents to the emergency department this evening status post a ground level which occurred at home. Patient states that she was all day and then she bent down to get something and felt a dizzy causing her to fall forward hitting the left side of her head on a metal object. Patient denies any loss of consciousness and takes a baby aspirin daily, no other blood thinners. She states that she can recall the fall, denies any near syncopal/syncopal episodes. Admits that she did have some alcohol, margaritas with her dinner. She is currently denying any symptoms including any room spinning sensation, lightheadedness, near syncopal episodes, chest pain or shortness of breath, nausea vomiting or any abdominal pain. No additional symptoms or concerns at this time. Related Data Home Medications ?Medication ?Instructions ?Recorded ?Confirmed ?Last Taken ?Type aspirin 81 mg tablet,delayed 81 mg PO DAILY 09/21/19 11/01/24 Unknown History release (Adult Aspirin Regimen) latanoprost 0.005 % eye drops 1 drop ophthalmic (eye) QPM 09/21/19 11/01/24 Unknown History Allergies Allergy/AdvReac Type Severity Reaction Status Date / Time MARK Inhibitors Allergy Unknown Cough Verified 12/28/24 19:58 adhesive Allergy Unknown Rash Verified 12/28/24 19:58 atorvastatin Allergy Unknown Muscle Pain Verified 12/28/24 19:58 latex Allergy Unknown Rash Verified 12/28/24 19:58 Penicillins Allergy Unknown Rash Verified 12/28/24 19:58 Atxthbm-KXE-WoM Reductase Allergy Unknown Muscle Pain Verified 12/28/24 19:58 Inhibitor (Wyxmmez-Lhj-Fzl Reductase Inhibitor) Review of Systems 2 Review of Systems: All systems are reviewed and are negative unless stated otherwise in the HPI. [facility] Past Medical History Medical History Chronic rhinitis Acute sinusitis Bronchitis Hospital discharge follow-up Asthma with exacerbation COPD with asthma Esophageal reflux Essential (primary) hypertension Mixed hyperlipidemia SVT (supraventricular tachycardia) Family History Family History Mother Family history of chronic obstructive pulmonary disease, Onset Age: 83 Sibling Family history of heart disease in male family member before age 55 Acute myocardial infarction Father Acute myocardial infarction Family history of coronary artery disease, Onset Age: 51 Grandparent Family history of cardiovascular disease, Onset Age: 89 Cerebrovascular accident Other Family history of allergic disorder Hypertension Social History Social History Smoking status: Never smoker Second hand tobacco smoke exposure: No Alcohol intake: current Lack of Transportation: No Lack of Food: Never True Current Housing: I Have Housing Concerned About Future Housing: No Difficulty Paying Gas/Electric Bills: No Difficulty Paying for Meds: No Currently Unemployed: No Education: Bachelor's Degree Difficulty w/ Childcare or Family Care: No Gender identity (if verbalized by the patient): Female Exam 2 Narrative: General: Alert, awake, afebrile, in no acute distress. HEENT: PERRL, no rhinorrhea, no post nasal drip, oropharynx clear, 4 cm laceration to the left anterior scalp, no active bleeding. Neck: Trachea midline, no JVD, no lymphadenopathy, no midline tenderness to palpation over the cervical spine. Cardiovascular: Regular rate and rhythm, no murmurs, rubs or gallops, no peripheral edema. Respiratory: Clear to auscultation bilaterally, no tachypnea, no wheezing, no rhonchi, no rubs, no respiratory distress. Abdomen: Soft, nontender, nondistended, no rebound, no guarding, no peritoneal signs. Musculoskeletal: No joint swelling or deformity, normal muscle tone. Skin: No rashes or petechia, no signs of infection. Psychiatric: Alert and oriented, normal behavior and judgment for situation. Neurological: Alert and oriented to person, place, and time. Follows all commands. No focal deficits, speech is clear and fluent. Course Vital Signs Vital signs: Vital Signs Temperature 98 F 12/28/24 19:46 Pulse Rate 84 12/28/24 19:46 Respiratory Rate 15 12/28/24 19:46 Blood Pressure 106/56 L 12/28/24 19:46 Pulse Oximetry 97 12/28/24 19:46 Oxygen Delivery Room Air 12/28/24 19:46 Temperature 98 F 12/28/24 19:46 Pulse Rate 73 12/28/24 21:45 Respiratory Rate 14 12/28/24 21:45 Blood Pressure 114/61 12/28/24 21:45 Pulse Oximetry 98 12/28/24 21:45 Oxygen Delivery Room Air 12/28/24 19:46 Procedures Laceration Laceration 1: Date: 12/28/24 Time: 22:28 Site: scalp Side (If applicable): left Size (cm): 4 Description: flap Depth: simple, single layer Local Anesthetic: none Pre-repair: irrigated ====== Skin Level ====== Skin layer closed with: hermann Number of sutures: 8 ====== Subcutaneous Layer ====== ====== Muscle Layer ====== ====== Tendon Layer ====== MDM - Dizziness MDM Narrative Medical decision making narrative: The patient was evaluated by myself in the emergency department. History is obtained from patient who is an independent historian and physical exam was performed. External medical records were reviewed at this time. IV was established and pertinent tests were ordered. Patient was administered a g of Tylenol for headache and 1 L IV fluid bolus with normal saline.. EKG was obtained which revealed sinus rhythm rate of 81 beats per minute, no evidence of acute ischemia. EKG was independently interpreted by me and is currently pending official cardiology read. Laboratory results obtained revealing no acute process. Imaging studies obtained included CT brain without IV contrast which was independently interpreted by me revealing no acute intracranial process, which is pending final radiology interpretation. Differential diagnosis considerations include lacerations, abrasions, intracranial hemorrhage. Comorbidities impacting this visit include none. I have evaluated and discussed social determinants of health with the patient that could potentially impact subsequent diagnosis and treatment plans. On repeat assessment of the patient, reevaluation revealed that the patient is doing well and is in no acute distress. Patient symptoms have improved since she arrived to our emergency department. Repeat vital signs were all reviewed and noted to be stable. Differential diagnosis and treatment plan were discussed with the patient at bedside. Patient agrees with discussion and after shared medical decision making agrees with discharge All questions were answered to the patient's satisfaction. Patient will follow up with her PCP in 3-5 days. Patient was provided with strict return precautions and instructed to return to the emergency department if any new or worsening symptoms develop. The patient was discharged in stable condition. Lab Data 12/28/24 20:11 12/28/24 20:11 Labs: Lab Results 12/28/24 Range/Units 20:11 WBC 8.6 (4.5-10.0) K/mm3 RBC 4.08 L (4.2-5.4) M/mm3 Hgb 12.0 (12.0-15.0) g/dL Hct 37.7 (37.0-47.0) % MCV 92.4 (80-100) fl MCH 29.4 (26-34) pg MCHC 31.8 L (32-36) g/dl RDW 13.2 (11.5-14.5) % Plt Count 332 (150-375) k/mm3 MPV 11.3 H (7.4-10.4) fl Immature Gran % (Auto) 0.2 (0-0.5) % Neut % (Auto) 59.9 (45.5-73.1) % Lymph % (Auto) 26.1 (18.3-44.2) % Madison % (Auto) 9.8 H (2.6-8.5) % Eos % (Auto) 2.2 (0-4.4) % Baso % (Auto) 1.8 H (0.2-1.2) % Lymph # (Auto) 2.23 (0.9-3.2) K/mm3 Madison # (Auto) 0.8 H (0.1-0.6) K/mm3 Eos # (Auto) 0.2 (0-0.3) K/mm3 Baso # (Auto) 0.2 H (0.0-0.1) K/mm3 Abs Immat Gran (auto) 0.02 (0.00-0.031) K/mm3 Absolute Neuts (auto) 5.1 (1.3-6.7) K/mm3 Absolute Nucleated RBC 0.000 (0.0-0.012) K/mm3 Nucleated RBC % 0.0 (0.0-0.2) % Sodium 133 L (137-145) mmol/L Potassium 4.2 (3.4-5.0) mmol/L Chloride 99 (98-107) mmol/L Carbon Dioxide 24 (22-30) mmol/L Anion Gap 10 (4-12) mmol/L BUN 23 H (7-17) mg/dL Creatinine 1.04 H (0.7-1.0) mg/dL Estim Creat Clear Calc 31 ml/min Estimated GFR 51 L (59 - ) Glucose 107 (65-110) mg/dL Calcium 9.1 (8.4-10.2) mg/dL Magnesium 2.2 (1.6-2.3) mg/dL Total Bilirubin 0.7 (0.2-1.3) mg/dL AST 38 H (14-36) U/L ALT 22 (6-35) U/L Alkaline Phosphatase 75 (38-126) U/L Total Protein 7.0 (6.3-8.2) g/dL Albumin 4.2 (3.5-5.1) g/dL Discharge Plan Discharge Clinical Impression: Fall from ground level, Head injury, Laceration of scalp Patient Disposition: Home Condition: Improved Instructions: Antibiotic Form, Laceration (DC), Head Injury (ED), Fall Prevention (ED) Additional Instructions: Please follow-up with your family doctor within the next week You will need to have your 8 hermann removed in 7-10 days. Return to the emergency department if any new or worsening symptoms develop. Patient Language: Korean Prescriptions: No Action (DME) nebulizer accessories Kit See Rx Instructions .Route Qty: 1 5RF Rx Instructions: As directed candesartan 8 mg tablet 8 mg PO DAILY Qty: 90 1RF hydrochlorothiazide 25 mg tablet 25 mg PO DAILY Qty: 30 5RF (DME) nebulizer accessories Kit See Rx Instructions .Route Qty: 1 5RF Rx Instructions: As directed (DME) inhalational spacing device Spacer See Rx Instructions .ROUTE .MEDSUPPLY Qty: 1 0RF Rx Instructions: As directed ipratropium-albuterol 0.5 mg-3 mg(2.5 mg base)/3 mL solution for nebulization See Rx Instructions .ROUTE .COMPLEX Qty: 1080 1RF Dose Instruction: USE 3 ML VIA NEBULIZER EVERY 6 HOURS NEEDED FOR SHORTNESS OF BREATH OR WHEEZING Rx Instructions: USE 3 ML VIA NEBULIZER EVERY 6 HOURS NEEDED FOR SHORTNESS OF BREATH OR WHEEZING aspirin [Adult Aspirin Regimen] 81 mg tablet,delayed release (DR/EC) 81 mg PO DAILY latanoprost 0.005 % drops 1 drop EACH EYE QPM albuterol sulfate 90 mcg/actuation HFA aerosol inhaler See Rx Instructions .ROUTE .COMPLEX Qty: 6.7 3RF Dose Instruction: INHALE 1 PUFF EVERY 4 HOURS Rx Instructions: INHALE 1 PUFF EVERY 4 HOURS budesonide-formoterol [Breyna] 160-4.5 mcg/actuation HFA aerosol inhaler See Rx Instructions .ROUTE .COMPLEX Qty: 10.3 5RF Dose Instruction: INHALE 2 PUFFS BY MOUTH EVERY 12 HOURS. RINSE AND SPIT Rx Instructions: INHALE 2 PUFFS BY MOUTH EVERY 12 HOURS. RINSE AND SPIT omeprazole 20 mg capsule,delayed release(DR/EC) 20 mg PO DAILY Qty: 90 1RF Follow-up/Referrals: Keith Mccormack DO [Primary Care Provider] - 1 Week Time of Disposition: 22:24
== END 2024-12-28 22:57 | disposition home or self-care (01) ==
PROVIDERS: Emergency Provider Emergency Medicine; PCP Internal Medicine
DX: S01.01XA Laceration without foreign body of scalp, initial encounter (principal); J45.909 Unspecified asthma, uncomplicated; I10 Essential (primary) hypertension; E78.5 Hyperlipidemia, unspecified; W18.30XA Fall on same level, unspecified, initial encounter
CPT/HCPCS: 12002; 36415; 70450; 80053; 83735; 85025; 93005; 96360; 99284; A9270; J7030

== ENCOUNTER 2025-02-15 14:18 | Outpatient (CLI) | payer MEDICARE, SELFPAY ==
--- OUTSIDE RECORDS SUMMARY | 2025-02-15 14:25 | XMS_ITS | Referral Summary ---
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
--- OUTSIDE RECORDS SUMMARY | 2025-02-15 14:25 | XMS_ITS | Clinical Summary ---
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 Gender Identity Not on file Sexual Orientation Not on file Plan of Treatment Health Maintenance Due Date Last Done Comments Depression Screening 1940 Fall Risk Assessment 1940 Osteoporosis Screening-Bone Density Scan 1940 Hepatitis B Screening 1958 Zoster Vaccine (1 of 2) 1990 Well Visit 65+ 2005 Covid-19 Vaccine (2023-2 5 season) 2024 06/06/2022, 01/11/2022, 07/16/2021, Additional history exists Influenza Vaccine (Season Ended) 2025 06/06/2022, 06/14/2021, 06/12/2020, Additional history exists DTaP/Tdap/Td Vaccine (2 - Td or Tdap) 05/28/2026 05/28/2016 Pneumococcal vaccine 65+ Completed 020, 07/07/2017, 06/24/2000 [place] Care Teams Fence Setter Relationship Specialty Start Date End Date Azam Baxter DO [address] [place] [address] DR HERNANDEZ [address] [place] [address] [phone] PCP - General Family Medicine 02/26/24
[2025-02-15 22:33] LABS: Anion Gap 9 mmol/L (4-12); Blood Urea Nitrogen 17 mg/dL (7-17); Calcium 9.5 mg/dL (8.4-10.2); Carbon Dioxide 26 mmol/L (22-30); Chloride 100 mmol/L (98-107); Estimated Glomerular Filt Rate > 60; Glucose 102 mg/dL (65-110); Potassium 3.6 mmol/L (3.4-5.0); Sodium 135 mmol/L (137-145)
== END 2025-02-15 14:19 | disposition home or self-care (01) ==
PROVIDERS: PCP Internal Medicine; Visit Provider Internal Medicine
DX: E87.1 Hypo-osmolality and hyponatremia (principal)
CPT/HCPCS: 36415; 80048

== ENCOUNTER 2025-08-05 12:35 | Emergency (ER) | payer MEDICARE, SELFPAY ==
--- NOTE | ~2025-08-05 | XR_ITS ---
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 Technique: 2 views obtained. Findings: The lungs are clear, no effusion. No pneumothorax. Heart is normal size. Mediastinal and hilar contours are within normal limits. Bony thorax no acute abnormality. Impression: No acute cardiopulmonary abnormality. Reviewed, dictated and finalized at location P. ER ALUMINUM SHEET Impression: No acute cardiopulmonary abnormality.
[2025-08-05 12:45] VITALS: BP 120/63; PULSE 93; RESP 18; TEMP 36.9; O2SAT 96
--- NOTE | 2025-08-05 13:30 | ED.URI ---
HPI - URI/Sore Throat General Chief Complaint: Upper Respiratory Infection Stated Complaint: SINUS/COUGH/CONGESTION Time Seen by Provider: 08/05/25 13:00 Source: patient Mode of arrival: ambulatory Limitations: no limitations History of Present Illness HPI Narrative: Ren is a 84-year-old female patient presenting to the clinic today with complaints of sinus congestion and cough. She reports sinus congestion it has been going on for approximately 1 week and she developed a cough yesterday. She reports some increased shortness of breath and chest congestion. Has been using her inhalers and nebulizers. Denies any fevers, chills, body aches. States the nasal drainage is clear and sputum is clear when she can get it up. Related Data Home Medications ?Medication ?Instructions ?Recorded ?Confirmed ?Last Taken ?Type aspirin 81 mg tablet,delayed 81 mg PO DAILY 09/21/19 06/17/25 Unknown History release (Adult Aspirin Regimen) latanoprost 0.005 % eye drops 1 drop ophthalmic (eye) QPM 09/21/19 06/17/25 Unknown History Allergies Allergy/AdvReac Type Severity Reaction Status Date / Time MARK Inhibitors Allergy Unknown Cough Verified 06/17/25 10:13 adhesive Allergy Unknown Rash Verified 06/17/25 10:13 atorvastatin Allergy Unknown Muscle Pain Verified 06/17/25 10:13 latex Allergy Unknown Rash Verified 06/17/25 10:13 Penicillins Allergy Unknown Rash Verified 06/17/25 10:13 Zhzsexe-JPK-ZtY Reductase Allergy Unknown Muscle Pain Verified 06/17/25 10:13 Inhibitor (Okipqjq-Mqm-Htq Reductase Inhibitor) Review of Systems Review of Systems: Pertinent positives per HPI. Patient denies any fever, chills, rash, headache, visual changes, dizziness, chest pain, palpitations, nausea, vomiting, diarrhea, constipation, abdominal pain, or any urinary issues. [facility] Past Medical History Medical History Hospital discharge follow-up Chronic rhinitis Acute sinusitis Bronchitis Asthma with exacerbation COPD with asthma Esophageal reflux Essential (primary) hypertension Mixed hyperlipidemia SVT (supraventricular tachycardia) Family History Family History Mother Family history of chronic obstructive pulmonary disease, Onset Age: 83 Sibling Family history of heart disease in male family member before age 55 Acute myocardial infarction Father Acute myocardial infarction Family history of coronary artery disease, Onset Age: 51 Grandparent Family history of cardiovascular disease, Onset Age: 89 Cerebrovascular accident Other Family history of allergic disorder Hypertension Social History Social History Smoking status: Never smoker Second hand tobacco smoke exposure: No Alcohol intake: current Lack of Transportation: No Lack of Food: Never True Current Housing: I Have Housing Concerned About Future Housing: No Difficulty Paying Gas/Electric Bills: No Difficulty Paying for Meds: No Currently Unemployed: No Education: Bachelor's Degree Difficulty w/ Childcare or Family Care: No Gender identity (if verbalized by the patient): Female Comments At the time of my signature, I reviewed and agree with the nursing past medical, surgical, social, and family history. There is no relevant family history pertinent to the patient complaint. Exam Narrative: General: Well-developed, well nourished, in no apparent distress Head: Normocephalic, atraumatic Eyes: Pupils equally round and reactive to light bilaterally, EOM intact, sclera and conjunctive clear, no discharge, lids normal Ears: TMs intact and clear, ear canals clear, no drainage, grossly hearing normal. Nose: Nares patent, clear discharge, mild inflammation, no sinus tenderness. Mouth: Oral pharynx without lesions or masses, good dentition, MMM. Postnasal drip Neck: Supple, trachea midline, no enlargement of anterior or posterior cervical nodes, no thyroid masses or goiter palpable. Cardio: Regular rate and rhythm, s1 and s2 normal, no murmur appreciated. Resp: Crackles in the right lower base, no rhonchi, wheezing or rubs Course Course Emergency Course: Portions of this record may have been created with voice recognition software. Level of Care: Express Care Visit Vital Signs Vital signs: Vital Signs Temperature 36.9 C 08/05/25 12:45 Pulse Rate 93 08/05/25 12:45 Respiratory Rate 18 08/05/25 12:45 Blood Pressure 120/63 08/05/25 12:45 Pulse Oximetry 96 08/05/25 12:45 Oxygen Delivery Room Air 08/05/25 12:45 Temperature 36.9 C 08/05/25 12:45 Pulse Rate 93 08/05/25 12:45 Respiratory Rate 18 08/05/25 12:45 Blood Pressure 120/63 08/05/25 12:45 Pulse Oximetry 96 08/05/25 12:45 Oxygen Delivery Room Air 08/05/25 12:45 Vital signs reviewed MDM - URI/Sore Throat MDM Narrative Medical decision making narrative: At the time of visit patient is resting comfortably on the exam table. Patient appears to be nontoxic. Complaints of sinus congestion and cough. She reports sinus congestion it has been going on for approximately 1 week and she developed a cough yesterday. She reports some increased shortness of breath and chest congestion. Has been using her inhalers and nebulizers. Denies any fevers, chills, body aches. States the nasal drainage is clear and sputum is clear when she can get it up. On exam patient has bilateral TMs intact and congested, clear nasal drainage with mild inferior turbinate inflammation, oropharynx with postnasal drip, heart rates regular rate and rhythm, lung sounds with crackles in the right lower lung field. Chest x-ray was ordered. Diagnostics: Chest x-ray was negative for any acute cardiopulmonary process. Plan: I suspect patient has bronchitis/URI. Prescription for prednisone was sent to the pharmacy. Recommend continuing inhalers. Supportive measures were discussed with the patient and they voiced understanding discharge instructions and agrees to treatment plan. Return precautions reviewed Differential Diagnosis Differential diagnosis: Likely upper respiratory infection, otitis media, sinusitis, viral infection, bronchitis, influenza, pharyngitis and other (COVID) Discharge Plan Discharge Clinical Impression: Bronchitis Upper respiratory infection Qualifiers: URI type: unspecified URI Qualified Code(s): J06.9 - Acute upper respiratory infection, unspecified Patient Disposition: Home Condition: Stable Instructions: Antibiotic Form, Acute Bronchitis (ED), Cold Symptoms (ED) Additional Instructions: Chest x-rays negative for any acute cardiopulmonary process. Continue inhalers and breathing treatments as prescribed Take prescription medications only as prescribed-prednisone Increase fluids and stay well hydrated May take Tylenol or motrin as directed on bottle for pain/fever May use Flonase 1 spray in each nare daily May take OTC antihistamines such as Zyrtec or Claritin daily as directed on bottle May apply Vicks vapor rub to chest to open sinuses Sinus rinses for congestion Cepacol spray, cough drops, throat lozenges, warm tea with honey/lemon, gargle salt water to soothe throat BRAT diet for diarrhea Clear liquids x 24 hours then advance as tolerated for nausea/vomiting Go to the ED if you develop a worsening in your condition- high fever not controlled by Tylenol or Motrin, dehydration, weakness, lethargy, shortness of breath, or chest pain. Follow up with your PCP in 3-5 days if symptoms persist. Patient Language: Nigerian Prescriptions: New prednisone 20 mg tablet 40 mg PO DAILY 5 Days Qty: 10 0RF No Action (DME) nebulizer accessories Kit See Rx Instructions .Route Qty: 1 0RF Rx Instructions: As directed (DME) inhalational spacing device Spacer See Rx Instructions .ROUTE .MEDSUPPLY Qty: 1 0RF Rx Instructions: As directed aspirin [Adult Aspirin Regimen] 81 mg tablet,delayed release (DR/EC) 81 mg PO DAILY latanoprost 0.005 % drops 1 drop EACH EYE QPM albuterol sulfate 90 mcg/actuation HFA aerosol inhaler See Rx Instructions .ROUTE .COMPLEX Qty: 6.7 3RF Dose Instruction: INHALE 1 PUFF EVERY 4 HOURS Rx Instructions: INHALE 1 PUFF EVERY 4 HOURS hydrochlorothiazide 25 mg tablet See Rx Instructions .ROUTE .COMPLEX Qty: 30 5RF Dose Instruction: TAKE 1 TABLET BY MOUTH DAILY Rx Instructions: TAKE 1 TABLET BY MOUTH DAILY ipratropium-albuterol 0.5 mg-3 mg(2.5 mg base)/3 mL solution for nebulization See Rx Instructions .ROUTE .COMPLEX Qty: 1080 1RF Dose Instruction: USE 3 ML VIA NEBULIZER EVERY 6 HOURS NEEDED FOR SHORTNESS OF BREATH OR WHEEZING Rx Instructions: USE 3 ML VIA NEBULIZER EVERY 6 HOURS NEEDED FOR SHORTNESS OF BREATH OR WHEEZING omeprazole 20 mg capsule,delayed release(DR/EC) 20 mg PO DAILY Qty: 90 1RF budesonide-formoterol [Breyna] 160-4.5 mcg/actuation HFA aerosol inhaler See Rx Instructions .ROUTE .COMPLEX Qty: 10.3 11RF Dose Instruction: INHALE 2 PUFFS BY MOUTH EVERY 12 HOURS. RINSE AND SPIT Rx Instructions: INHALE 2 PUFFS BY MOUTH EVERY 12 HOURS. RINSE AND SPIT montelukast 10 mg tablet 10 mg PO DAILY Qty: 30 5RF candesartan 4 mg tablet 4 mg PO DAILY Qty: 90 1RF Follow-up/Referrals: Keith Mccormack DO [Primary Care Provider, Internal Medicine] Time of Disposition: 13:33 Quality NIHSS Nursing Documentation ED NIHSS nursing documentation: reviewed/agree
== END 2025-08-05 13:39 | disposition home or self-care (01) ==
PROVIDERS: Emergency Provider Nurse Practitioner Family; PCP Internal Medicine
DX: J40 Bronchitis, not specified as acute or chronic (principal); J06.9 Acute upper respiratory infection, unspecified; I10 Essential (primary) hypertension; J44.9 Chronic obstructive pulmonary disease, unspecified; K21.9 Gastro-esophageal reflux disease without esophagitis; E78.2 Mixed hyperlipidemia; Z79.82 Long term (current) use of aspirin
CPT/HCPCS: 71046; 99213; G0463